=== PATIENT | female | born 1970 | race Caucasian/White ===

== ENCOUNTER 2017-12-09 07:30 | Inpatient (IN) | payer OTHER ==
--- NOTE | 2017-12-08 17:45 | Pre-op HX & Phy Repo 2 SIG ---
DATE OF ADMISSION: 12/09/2017 HISTORY OF PRESENT ILLNESS: The patient is a 47-year-old female in overall good health with a history of colonic inertia, rectal outlet obstruction with a malfunctioning ileorectostomy scheduled to be admitted to undergo surgery to take down her ileorectostomy and create a Sheppard continent intestinal reservoir continent ileostomy. The patient has a past history of colonic inertia, rectal prolapse and pelvic floor dysfunction and in 2013 underwent subtotal colectomy with ileosigmoidostomy. She had some continuing difficulties and then in October 2015 developed a volvulus at the anastomosis with a leak. The patient underwent operation with resection with conversion to an ileorectostomy and a temporary loop ileostomy. During the time that she had the loop ileostomy she had no gastrointestinal symptoms at all. In January 2016 the loop ileostomy was closed. She developed a right lower quadrant abscess drained by CT scan-guided drainage placement in February 2016 and she underwent surgery June 2016 to excise a right lower quadrant abscess tract of the abdominal wall. The patient currently has daily severe abdominal pain and nausea, bloating with every meal, she has some rectal incontinence. She evacuates only with the help of her medications, Linzess which was started after January 2016. The patient developed small bowel obstruction in March of this year which resolved with NG suction. OPERATIONS:In addition to the above, the patient underwent total abdominal hysterectomy with bilateral salpingo-oophorectomy in 1997. MEDICATIONS: Xanax 5 mg every night as needed for restless leg syndrome, estradiol 1 mg daily, Linzess 290 mcg orally daily. ALLERGIES TO MEDICATIONS: Demerol causes hives and Dilaudid causes shortness of breath. PHYSICAL EXAMINATION: VITAL SIGNS: The patient is 5 foot 1 inch, 120 pounds. [place] and will be examined upon arrival and dictated separately. IMPRESSION: 1. History of colonic inertia and rectal outlet/pelvic floor dysfunction with malfunctioning ileorectostomy. 2. History of recurrent small bowel obstruction. 3. History of lupus. 4. History of fibromyalgia. 5. History of shoulder surgery. 6. Status post multiple abdominal operations. 6.1. Total abdominal hysterectomy and bilateral salpingo-oophorectomy 1997 6.2. Subtotal colectomy with ileosigmoidostomy 2013. 6.3. Resection of ileosigmoidostomy due to volvulus and anastomosis leak, with conversion to ileorectostomy and loop ileostomy October 2015. 6.4. Closure of loop ileostomy January 2016. 6.5. Excision of right lower quadrant abscess tract of abdominal wall June 2016 DISCUSSION AND PLAN: The patient will be admitted and undergo preparation for surgery to take down her malfunctioning ileorectal anastomosis and instead of a conventional ileostomy to create a Sheppard Continent Intestinal [place]. She will undergo insertion of a dual lumen PICC line and receive intravenous hydration at the same time as her bowel prep. She will be on a clear liquid diet. She will receive preoperative intravenous antibiotics started the night before surgery and will receive preoperative subcutaneous heparin. I have had a detailed discussion with the patient regarding the nature of the Sheppard Pouch procedure including temporary catheter gastrostomy, indications, alternatives, options, and risks including bleeding, infection, injury to adjacent structures or organs, need for subsequent surgery to revise potential problems with the Sheppard pouch including slipped valve or fistula of pouch or valve or other issues that can occur with the functioning of the pouch or the stoma, etc. I have also discussed the risks of deep vein thrombosis and preventive measures taken, potential need for TPN, etc, and will answer all questions and have a detailed discussion again in person when the patient arrives from out of state. Tyrone Conte M.D. DR: Mitali JOB#: [id number] CC: LAM
[~2017-12-09] VITALS: Ht 157.5 cm; Wt 61.2 kg
[2017-12-09 08:50] VITALS: BP 124/80
[2017-12-09] MEDS ORDERED: ESTRACE1 MG ORAL (09:12)
[2017-12-09] MEDS ORDERED: DIAZEPAM5 MG ORAL (09:13)
[2017-12-09] MEDS ORDERED: Lidocaine 1% Plain 30 ml INJ PRN (09:30)
[2017-12-09] MEDS ORDERED: Heparin 2000 units/Ns 1000ml INJ PRN (09:30)
[2017-12-09] MEDS ORDERED: Zolpidem 5mg tab ORAL PRN (09:45)
[2017-12-09 10:52] LABS: EOSINOPHILS % (AUTO) 1.2 % (0.0-3.0); HEMATOCRIT 37.5 % (37.0-47.0); HEMOGLOBIN 12.3 G/DL (12.0-16.0); LYMPHOCYTES % (AUTO) 28.9 % (20.0-45.0); MEAN CORPUSCULAR VOLUME 85 FL (80-99); MONOCYTES % (AUTO) 7.1 % (1.0-10.0); NEUTROPHILS % (AUTO) 61.8 % (45.0-75.0); PLATELET COUNT 236 K/UL (150-450); RED BLOOD COUNT 4.43 M/UL (4.20-5.40); RED CELL DISTRIBUTION WIDTH 12.6 % (11.6-14.8); WHITE BLOOD COUNT 7.5 K/UL (4.8-10.8)
[2017-12-09 11:15] VITALS: BP 104/70
[2017-12-09 11:20] LABS: ANION GAP 6 mmol/L (5-15); BLOOD UREA NITROGEN 15 mg/dL (7-18); CALCIUM 8.9 MG/DL (8.5-10.1); CARBON DIOXIDE 29 MMOL/L (21-32); CHLORIDE 108 MMOL/L (98-107); CREATININE 0.7 MG/DL (0.55-1.30); POTASSIUM 3.8 MMOL/L (3.5-5.1); SODIUM 143 MMOL/L (136-145)
[2017-12-09 11:25] LABS: ALANINE AMINOTRANSFERASE 18 U/L (12-78); ALBUMIN 3.2 G/DL (3.4-5.0); ALBUMIN/GLOBULIN RATIO 0.8 (1.0-2.7); ALKALINE PHOSPHATASE 87 U/L (46-116); ASPARTATE AMINO TRANSFERASE 15 U/L (15-37); BILIRUBIN,TOTAL 0.1 MG/DL (0.2-1.0)
--- NOTE | 2017-12-09 12:33 | Diagnostic Imaging Report ---
Indication: superintendent container terminal venous access Findings: After the indications, procedure, risks, complications, and alternatives of the procedure were explained, written informed consent was obtained. The left upper extremity was prepped with alcohol. All elements of maximal sterile barrier technique were followed including usage of a cap, mask, sterile gown, sterile gloves, hand hygiene and a large sterile sheet. Sonographic evaluation of the upper extremity was performed demonstrating a patent and compressible brachial vein. Access was obtained under real-time ultrasound guidance (with utilization of sterile gel and sterile probe cover) and digital image was saved and archived. An .018 wire was introduced. Needle exchanged for a 5 Canadian peel-away sheath. Measurements were obtained. A 5 Canadian dual-lumen Power PICC line catheter was cut to 46 cm and introduced over the wire. Peel-away sheath and wire were removed.Catheter was secured to the skin using 2-0 Prolene suture. Both ports aspirate and flush easily. Fluoroscopic images show distal tip in the superior vena cava. Total fluoroscopic time 0.2 minutes. Impression: Successful placement of an upper extremity PICC line catheter
--- NOTE | 2017-12-09 12:33 | Diagnostic Imaging Report ---
Indication: Cough. Status post PICC line Comparison: None A single view chest radiograph was obtained. Findings: Left upper extremity PICC line was placed. The tip projects over the SVC/right atrial junction in good position. Cardiomediastinal appearance is within normal limits for age. The lungs are clear. Pulmonary vascularity is appropriate. The diaphragmatic contour is smooth and costophrenic angles are sharp. No pleural effusions are identified. The bones are unremarkable. Impression: No acute findings. PICC line cleared for use.
[2017-12-09] MEDS: Neomycin Sulfate 500mg Tab ORAL SCH ×3 (12:47→20:10)
[2017-12-09 12:58] LABS: APPEARANCE,URINE CLEAR; BILIRUBIN, URINE NEGATIVE (NEGATIVE); COLOR,URINE PALE YELLOW; GLUCOSE, URINE (UA) NEGATIVE (NEGATIVE); KETONES,URINE NEGATIVE (NEGATIVE); LEUKOCYTE ESTERASE ,URINE NEGATIVE (NEGATIVE); NITRITE,URINE NEGATIVE (NEGATIVE); PH,URINE 5 (4.5-8.0); PROTEIN,URINE NEGATIVE (NEGATIVE); UROBILINOGEN,URINE NORMAL MG/DL (0.0-1.0)
[2017-12-09] MEDS: D5 1/2NS w/KCl 20mEq 1,000 ML IV SCH ×3 (14:31→22:00)
[2017-12-09] MEDS ORDERED: D5 1/2NS w/KCl 20mEq 1,000 ML IV SCH ×2 (14:37→18:00)
--- NOTE | 2017-12-09 15:27 | General Progress Note ---
Progress Note Progress Note H&P dictated - patient states no surgery was performed for SBO in March of this year - resolved with NG suction. Hgb 12.3 Albumin low 3.2 Imp. Colonic inertia and pelvic floor dysfunction with failed ileorectostomy Malnutrition Plan: bowel prep, IV hydration, IV antibiotics pre-op tonight and SQ heparin in AM pre-op f/u labs in AM pre-op Full discussion with patient and family. Tyrone Conte MD Dec 09, 2017 15:27
[2017-12-09 16:00] VITALS: BP 118/68
[2017-12-09 19:59] VITALS: BP 114/74
[2017-12-09] MEDS: Dyna-Hex 2% Top Sol 2oz TOPIC SCH (20:10)
[2017-12-09] MEDS: ESTRADIOL 2 MG ORAL SCH (20:10)
[2017-12-09] MEDS ORDERED: ALPRAZolam 0.5mg tab ORAL PRN (21:00)
--- NOTE | 2017-12-09 22:00 | Pre-op HX & Phy Repo 2 SIG ---
DATE OF ADMISSION: 12/09/2017 PREOPERATIVE ADMISSION HISTORY AND PHYSICAL The patient has now [place]. Please see previously dictated history. PHYSICAL EXAMINATION: GENERAL: The patient is well developed and well nourished. VITAL SIGNS: Stable vital signs, 5 feet 1 inch, approximately 120 pounds. HEENT: Within normal limits. LUNGS: Clear. HEART: Regular rhythm. BREASTS: Without masses. ABDOMEN: Soft with a midline indented scar from umbilicus to pubis and a Pfannenstiel scar also somewhat indented. There is a transverse right lower quadrant scar high in the right lower quadrant from prior loop ileostomy. There was no evidence of abdominal wall hernia. PELVIC: Status post MESHA and BSO. RECTAL: No perianal inflammation. EXTREMITIES: Without edema. Pulses 3+ femoral to pedal bilaterally. NEUROLOGIC: Physiologic. IMPRESSION: 1. History of colonic inertia and pelvic floor dysfunction with malfunctioning failed ileorectostomy. 2. History of lupus. 3. History of fibromyalgia. 4. History of shoulder surgery. 5. STATUS POST MULTIPLE ABDOMINAL OPERATIONS: 1. Total abdominal hysterectomy and bilateral salpingo-oophorectomy 1997 2. Subtotal colectomy with ileosigmoidostomy 2013. 3. Resection of ileosigmoidostomy due to volvulus and anastomosis leak with conversion to ileorectostomy with temporary loop ileostomy in October 2015 4. Closure of loop ileostomy in January 2016. 5. Excision of right lower quadrant abscess tract of the abdominal wall June 2016 6. Recurrent small bowel obstruction DISCUSSION: I had a full discussion with the patient and her family regarding the nature of her condition, the nature of the Sheppard continent ileostomy compared to conventional ileostomy, indications, alternatives, options and all of the risks. All questions have been answered. The patient understands and agrees to proceed. Tyrone Conte M.D. DR: SHUN/WU JOB#: [id number] CC: LAM
[2017-12-09] MEDS: Ampicillin/Sulbactam Sod 3 GM in NS 110 ML IV SCH (23:18)
[2017-12-10] VITALS (17 sets, daily range): BP systolic 103–118; BP diastolic 55–77
[2017-12-10] MEDS ORDERED: Heparin 5000 units/ml inj SUBQ SCH (05:30)
[2017-12-10] MEDS: Ampicillin/Sulbactam Sod 3 GM in NS 110 ML IV SCH ×4 (05:32→23:16)
[2017-12-10] MEDS: D5 1/2NS w/KCl 20mEq 1,000 ML IV SCH ×2 (05:33→22:32)
[2017-12-10 05:55] LABS: BASOPHILS % (AUTO) 0.9 % (0.0-2.0); EOSINOPHILS % (AUTO) 1.2 % (0.0-3.0); HEMOGLOBIN 10.3 G/DL (12.0-16.0); LYMPHOCYTES % (AUTO) 16.4 % (20.0-45.0); MEAN CORPUSCULAR VOLUME 86 FL (80-99); MONOCYTES % (AUTO) 5.8 % (1.0-10.0); NEUTROPHILS % (AUTO) 75.7 % (45.0-75.0); PLATELET COUNT 177 K/UL (150-450); RED BLOOD COUNT 3.84 M/UL (4.20-5.40); RED CELL DISTRIBUTION WIDTH 12.7 % (11.6-14.8); WHITE BLOOD COUNT 6.3 K/UL (4.8-10.8)
[2017-12-10 06:33] LABS: ALBUMIN 2.6 G/DL (3.4-5.0); FERRITIN 10 NG/ML (8-388)
[2017-12-10 06:50] LABS: % IRON SATURATION 41 % (15-50); IRON 125 ug/dL (50-175); TOTAL IRON BINDING CAPACITY 305 ug/dL (250-450)
[2017-12-10] MEDS ORDERED: Sterile Water Irrig 1000ml IRRIG ONE (07:00)
[2017-12-10] MEDS ORDERED: Neostigmine 1mg/ml 10ml Inj ONE (07:00)
[2017-12-10] MEDS ORDERED: Ketorolac 30mg Inj ONE (07:00)
[2017-12-10] MEDS ORDERED: LR 1000ml ONE (07:00)
[2017-12-10] MEDS ORDERED: Propofol 1,000mg/ 100ml btl IV ONE (07:00)
[2017-12-10] MEDS ORDERED: NS Irrig 1000ml ONE (07:00)
[2017-12-10] MEDS ORDERED: Succinylcholine 20mg/ml 10ml vial ONE (07:01)
[2017-12-10] MEDS ORDERED: Zemuron 50mg/5ml Inj IV ONE (07:01)
[2017-12-10] MEDS ORDERED: fentaNYL 100 mcg/2 mL IV ONE (07:08)
[2017-12-10] MEDS ORDERED: Midazolam 2mg/2ml Inj ONE (07:08)
[2017-12-10] MEDS ORDERED: Bacitracin 50000 Units Vial ONE (07:15)
[2017-12-10] MEDS ORDERED: NeoSporin Gu Irrig 1ml Amp IRRIG ONE (07:15)
--- NOTE | 2017-12-10 07:15 | Pre-Procedure Note/Attestation ---
Pre-Procedure Note/Attestation Complete Prior to Procedure Planned Procedure: not applicable Procedure Narrative: Sheppard Continent Intestinal [place]; gastrostomy Indications for Procedure Pre-Operative Diagnosis: colonic inertia, failed ileorectostomy Attestation I attest that I discussed the nature of the procedure; its benefits; risks and complications; and alternatives (and the risks and benefits of such alternatives ), prior to the procedure, with the patient (or the patient's legal retail field representative). I attest that, if there was a reasonable possibility of needing a blood transfusion, the patient (or the patient's legal retail field representative) was given the [facility] standardized written summary, pursuant to the [place] Blood Safety Act ([place] Health and Safety Code # 1645, as amended). I attest that I re-evaluated the patient just prior to the surgery and that there has been no change in the patient's H&P, except as documented below:none Tyrone Conte MD Dec 10, 2017 07:15
[2017-12-10] MEDS ORDERED: Morphine Sulfate 10mg/ml Inj ONE (08:20)
[2017-12-10] MEDS ORDERED: Sodium Chloride 10ml vial INJ ONE (08:20)
--- NOTE | 2017-12-10 08:36 | Anethesia Preoperative Eval ---
Anesthesia Pre-op PMH/ROS General Date of Evaluation: Dec 10, 2017 Time of Evaluation: 07:10 Anesthesiologist: Francesco ASA Score: ASA 3 Mallampati Score Class I : Soft palate, uvula, fauces, pillars visible Class II: Soft palate, uvula, fauces visible Class III: Soft palate, base of uvula visible Class IV: Only hard plate visible Mallampati Classification: Class II Surgeon: Dg Diagnosis: Malfunctioing ileostomy Surgical Procedure: Ex laparotomy creation of continent pouch Anesthesia History: PONV Family History: no anesthesia problems Allergies: Coded Allergies: HYDROMORPHONE (Verified Allergy, Severe, Shortness of Breath, 12/09/17) MEPERIDINE (Verified Allergy, Severe, Hives, 12/09/17) Medications: see eMAR Patient NPO?: Yes NPO Date: Dec 10, 2017 NPO Time: 0000 Past Medical History Cardiovascular: Denies: HTN, CAD, VT, valve dz, arrhythmia, other Pulmonary: Denies: asthma, COPD, KENDRA, other Gastrointestinal/Genitourinary: Reports: GERD - mild, other - Colon mobility disorder; Denies: CRI, ESRD Neurologic/Psychiatric: Reports: depression/anxiety; Denies: dementia, CVA, TIA, other HEENT: Denies: cataract (L), cataract (R), glaucoma, OMAHA (L), OMAHA (R), other Hematology/Immune: Reports: anemia - mild; Denies: DVT, bleeding disorder, other Musculoskeletal/Integumentary: Denies: OA, RA, DJD, DDD, edema, other PMH Narrative: as above PSxH Narrative: multiple abdominal Sx including hysterectomy, see H&P for details Anesthesia Pre-op Phys. Exam Physician Exam Last Vital Signs Date Time Temp Pulse Resp B/P (MAP) Pulse Ox O2 Delivery O2 Flow Rate FiO2 12/10/17 05:30 97.7 87 18 112/70 (84) 100 97.7 12/09/17 21:00 Room Air Constitutional: NAD Neurologic: CN 2-12 intact Cardiovascular: RRR, no M/R/G Respiratory: CTA Gastrointestinal: S/NT/ND Airway Exam Mallampati Score: Class II MO: full Neck: flexible ROM: full Teeth: intact Dentures: no upper, no lower Anesthesia Pre-op A/P Labs Hematology Test 10/15/18 10:25 12/10/17 05:30 White Blood Count 7.5 K/UL (4.8-10.8) 6.3 K/UL (4.8-10.8) Red Blood Count 4.43 M/UL (4.20-5.40) 3.84 M/UL (4.20-5.40) L Hemoglobin 12.3 G/DL (12.0-16.0) 10.3 G/DL (12.0-16.0) L Hematocrit 37.5 % (37.0-47.0) 33.0 % (37.0-47.0) L Mean Corpuscular Volume 85 FL (80-99) 86 FL (80-99) Mean Corpuscular Hemoglobin 27.9 PG (27.0-31.0) 26.9 PG (27.0-31.0) L Mean Corpuscular Hemoglobin Concent 32.9 G/DL (32.0-36.0) 31.3 G/DL (32.0-36.0) L Red Cell Distribution Width 12.6 % (11.6-14.8) 12.7 % (11.6-14.8) Platelet Count 236 K/UL (150-450) 177 K/UL (150-450) Mean Platelet Volume 7.7 FL (6.5-10.1) 8.2 FL (6.5-10.1) Neutrophils (%) (Auto) 61.8 % (45.0-75.0) 75.7 % (45.0-75.0) H Lymphocytes (%) (Auto) 28.9 % (20.0-45.0) 16.4 % (20.0-45.0) L Monocytes (%) (Auto) 7.1 % (1.0-10.0) 5.8 % (1.0-10.0) Eosinophils (%) (Auto) 1.2 % (0.0-3.0) 1.2 % (0.0-3.0) Basophils (%) (Auto) 1.0 % (0.0-2.0) 0.9 % (0.0-2.0) Coagulation Test 12/09/17 10:25 Prothrombin Time 10.1 SEC (9.30-11.50) Prothromb Time International Ratio 1.0 (0.9-1.1) Activated Partial Thromboplast Time 25 SEC (23-33) Chemistry Test 12/09/17 10:25 12/10/17 05:30 Sodium Level 143 MMOL/L (136-145) Potassium Level 3.8 MMOL/L (3.5-5.1) Chloride Level 108 MMOL/L (98-107) H Carbon Dioxide Level 29 MMOL/L (21-32) Anion Gap 6 mmol/L (5-15) Blood Urea Nitrogen 15 mg/dL (7-18) Creatinine 0.7 MG/DL (0.55-1.30) Estimat Glomerular Filtration Rate > 60 mL/min (>60) Glucose Level 93 MG/DL (74-106) Calcium Level 8.9 MG/DL (8.5-10.1) Total Bilirubin 0.1 MG/DL (0.2-1.0) L Aspartate Amino Transf (AST/SGOT) 15 U/L (15-37) Alanine Aminotransferase (ALT/SGPT) 18 U/L (12-78) Alkaline Phosphatase 87 U/L (46-116) Total Protein 7.1 G/DL (6.4-8.2) Albumin 3.2 G/DL (3.4-5.0) L 2.6 G/DL (3.4-5.0) L Globulin 3.9 g/dL Albumin/Globulin Ratio 0.8 (1.0-2.7) L Iron Level 125 ug/dL (50-175) Total Iron Binding Capacity 305 ug/dL (250-450) Percent Iron Saturation 41 % (15-50) Unsaturated Iron Binding 180 ug/dL (112-346) Ferritin 10 NG/ML (8-388) Vitamin B12 Level 374 PG/ML (193-986) Folate 11.4 NG/ML (8.6-58.9) Risk Assessment & Plan Assessment: ASA 3 Plan: GA with ETT PONV prevention Status Change Before Surgery: No Pre-Antibiotics Drug: as scheduled Reggie Maya MD Dec 10, 2017 08:36
[2017-12-10] MEDS ORDERED: Glycopyrrolate 0.2mg/ml 1ml Vial ONE (09:45)
[2017-12-10] MEDS ORDERED: LR 1000ml 1,000 ML IVLG SCH (10:23)
[2017-12-10] MEDS ORDERED: Midazolam 2mg/2ml Inj IVP PRN (10:30)
[2017-12-10] MEDS ORDERED: Morphine Sulfate 2mg/ml Inj IVP PRN (10:30)
[2017-12-10] MEDS ORDERED: Ketorolac 30mg Inj IV PRN (10:30)
[2017-12-10] MEDS ORDERED: DiphenhydrAMINE 50mg/ml Inj IVP PRN ×2 (10:30→12:23)
[2017-12-10] MEDS ORDERED: Metoclopramide 10mg/2ml Inj IVP PRN ×2 (10:30→22:30)
[2017-12-10] MEDS ORDERED: fentaNYL 100 mcg/2 mL IV PRN (10:30)
[2017-12-10] MEDS ORDERED: Ampicillin/Sulbactam Sod 3 GM in NS 110 ML IV SCH (12:00)
--- NOTE | 2017-12-10 12:09 | Immediate Post-Op Evaluation ---
Immediate Post-Op Evalulation Immediate Post-Op Evalulation Procedure: Ex laparotomy creation of continent pouch Date of Evaluation: Dec 10, 2017 Time of Evaluation: 12:07 IV Fluids: 1500 Blood Products: Albumin 250 Estimated Blood Loss: 50 Urinary Output: 150 Blood Pressure Systolic: 105 Blood Pressure Diastolic: 56 Pulse Rate: 84 Respiratory Rate: 20 O2 Sat by Pulse Oximetry: 99 Temperature (Fahrenheit): 98.6 Pain Score (1-10): 1 Nausea: No Vomiting: No Complications none Patient Status: reacts, patent, extubated, none Hydration Status: adequate Reggie Maya MD Dec 10, 2017 12:09
[2017-12-10] MEDS ORDERED: Rate Change PCA 1 Each MISC PRN (12:15)
[2017-12-10] MEDS ORDERED: Morphine Sulfate 4mg/ml Inj (IV/IM USE ONLY) IV PRN (12:15)
[2017-12-10] MEDS ORDERED: Naloxone 0.4mg/ml Inj IVP PRN (12:15)
[2017-12-10] MEDS ORDERED: PCA Education Pamphlet MISC ONE (12:15)
--- NOTE | 2017-12-10 12:18 | Brief Operative Note ---
Immediate Post Operative Note Operative Note Pre-op Diagnosis: colonic inertia, failed ileorectostomy Procedure: Takedown and resection of ileorectostomy; Sheppard Continent Intestinal [place] ; gastrostomy Post-op Diagnosis: same Post-op Diagnosis: same as pre-op Findings: consistent w/pre-op dx studies Surgeon: ciro Medical Record Coder: claudia Anesthesiologist: kenton Anesthesia: general Specimen: yes - ileorectostomy and small bowel segment Complications: none Condition: stable Fluids: see anesthesia record Estimated Blood Loss: volume - 50cc Drains: other - 28 Block to Sheppard Pouch; 18Fr gastrostomy; 0.25" peggy Implant(s) used?: No Tyrone Conte MD Dec 10, 2017 12:18
[2017-12-10] MEDS: PCA Morphine 1mg/ml 30 ML IV PRN (12:31)
[2017-12-10] MEDS ORDERED: LORazepam 1mg tab SL PRN (12:56)
[2017-12-10] MEDS: D5 1/4NS w/KCl 20mEq 1,000 ML IV SCH ×2 (14:16→23:16)
[2017-12-10] MEDS ORDERED: Metoclopramide 10mg/2ml Inj IVP SCH (16:32)
--- NOTE | 2017-12-10 16:45 | Operative Note - Dictated ---
DATE OF OPERATION: 12/10/2017 SURGEON: Tyrone Conte M.D. SUPERVISOR OF COMMUNICATIONS SURGEON: Balwinder Patrick M.D. ANESTHESIOLOGIST: Reggie Maya M.D. TYPE OF ANESTHESIA: General endotracheal. PREOPERATIVE DIAGNOSES: 1. Colonic inertia and pelvic floor dysfunction with failed ileorectostomy 2. Recurrent small-bowel obstruction. 3. STATUS POST MULTIPLE ABDOMINAL OPERATIONS: 1. Total abdominal hysterectomy and bilateral salpingo-oophorectomy 1997 2. Subtotal colectomy with ileosigmoidostomy in 2013. 3. Resection of ileosigmoidostomy due to volvulus with anastomosis leak with conversion to ileorectostomy and temporary loop ileostomy October 2015 4. Closure of loop ileostomy in January 2016. 5. Excision of right lower quadrant abscess tract of abdominal wall June 2016 POSTOPERATIVE DIAGNOSES: 1. Colonic inertia and pelvic floor dysfunction with failed ileorectostomy 2. Recurrent small-bowel obstruction. 3. STATUS POST MULTIPLE ABDOMINAL OPERATIONS: 1. Total abdominal hysterectomy and bilateral salpingo-oophorectomy 1997 2. Subtotal colectomy with ileosigmoidostomy in 2013. 3. Resection of ileosigmoidostomy due to volvulus with anastomosis leak with conversion to ileorectostomy and temporary loop ileostomy October 2015 4. Closure of loop ileostomy in January 2016. 5. Excision of right lower quadrant abscess tract of abdominal wall June 2016 OPERATION PERFORMED: Takedown and resection of failed ileorectostomy with creation of a Sheppard Continent Intestinal [place] and temporary catheter gastrostomy. DESCRIPTION OF PROCEDURE: The patient was taken to the operating room and under general endotracheal anesthesia with sequential compression device stockings and Block catheter in place and having received intravenous antibiotics and preoperative subcutaneous heparin, the patient was prepped and draped in the usual fashion. The patient had both a Pfannenstiel incision and a lower midline and multiple trocar scars. The previous lower midline incision was reopened ultimately extending into the midepigastrium because of severe diffuse adhesions. Adhesions were noted throughout the abdomen. A loop of small bowel was densely adherent to the undersurface of the left lobe of the liver. The liver and gallbladder itself were normal to inspection and palpation. There was an ample amount of small intestine, all of which was normal. The small intestine was traced from ligament of Treitz to the ileorectostomy taking down all the adhesions. The ileorectostomy was stapled across at the anastomosis and another application further down on the rectum, giving the specimen to pathology. Now the dilated ileum distal of several inches was excised with another application of a DAVIS-75 stapling device and this staple line proximally was imbricated with 3-0 silk and 12 cm proximal marked for the collar segment. Another marker was placed 15 cm proximal and two 15-cm loops placed side by side including the prior enteroenterostomy from closure of loop ileostomy. An appropriately situated enterostomy was created and using the DAVIS-75 stapling device with multiple applications, an ileal reservoir was created. A 3-0 silk was placed at the apex. The staple line was everted and the serosal posterior aspect was inspected and there were no defects. The mucosal aspect was inspected and hemostasis was secure. The junction of the afferent bowel and the pouch was marked with 2-0 chromic and 12 cm proximal marked for the nipple valve segment. Another marker was placed and a 2-fingerbreadth mesenteric hiatus created ligating vessels with 3-0 silk. The abdominal wall measured at 3 cm thickness and the appropriate-length access segment was measured and marked and then the mesentery divided preserving two good vessels to the access segment and the bowel divided proximally with the linear stapler 30, imbricated with 3-0 silk and distally left open to become the new stoma. The peritoneum on each side of the valve segment mesentery was stripped and the serosa scarified with cautery. With gradual intussusception a 5.0-cm long nipple valve was created. Two rows of lauren using the PI-55 stapling device with 4.8 mm lauren were placed 90 degrees away from the mesentery on each side. 3-0 silk sutures were taken between the access segment and the pouch on each side of its mesentery and then another application of the PI-55 stapling device was utilized to staple the valve to the anterior pouch wall. Using a Cooper suction cannula, orientation was maintained and patency confirmed. Additional sutures of 3-0 silk were taken between the access segment and the pouch. Now intestinal continuity was restored taking the proximal bowel, placing it side by side to the pouch enterotomy with a very short blind end and an outer layer of 3-0 silk placed. Then the proximal bowel was opened and anastomosis created with full-thickness locking continuous 2-0 chromic starting posteriorly, continued anteriorly with an outer anterior layer of 3-0 silk. Now the collar was brought through the mesenteric hiatus and sutured to the pouch, to the afferent bowel, and to itself with multiple 3-0 silk sutures. The afferent bowel was now manually occluded and a 28-Ind[place] Block catheter placed through the stoma into the pouch. The pouch was distended with 120 mL of saline and there was no evidence of extravasation. The catheter was removed and there was no incontinence. The catheter was reintroduced and the pouch decompressed. The abdomen and pelvis were carefully inspected and hemostasis was satisfactory. The bladder and ureters had been avoided and protected during the procedure. At a previously located site low in the right lower quadrant, a 2.5-cm narrow ellipse of skin was excised in transverse orientation and with a cruciate incision in the fascia, a 2-fingerbreadth abdominal wall hiatus was created. Bleeding from the epigastric vessel was controlled with [id number] 2-0 chromic. The posterior pouch was sutured to the peritoneum at the stoma site with 3-0 Vicryl and then the stoma and the access segment with its mesentery brought through the abdominal wall. With a 28-Ind[place] Block catheter positioned in the pouch, the stoma was primarily matured with continuous 2-0 chromic locking suture starting at the 3 and 9 o'clock positions. The pouch lay nicely in the pelvis and the bowel loops were replaced anatomically. The catheter was appropriately positioned at the apex of the pouch, marked at the level of the stoma with 3-0 silk and then sutured to the skin with two sutures of 2-0 silk. The catheter was flushed and connected to a gravity drainage bag. Through a separate stab incision inferior to the stoma, a quarter-inch [place] drain was placed into the pelvis and sutured to the skin with 3-0 silk suture. Throughout the procedure, the abdominal wall was protected with antibiotic-soaked laps and there were frequent glove changes. A [place] retractor was utilized. Now to provide decompression, a catheter gastrostomy was created by passing an 18-[place] Block catheter through a stab incision in the left upper quadrant and placed into the stomach greater curve anterior wall body between two concentric 2-0 chromic pursestring sutures with the balloon inflated and the stomach sutured to the anterior abdominal wall with multiple 3-0 silk sutures. The catheter was flushed and connected to a gravity drainage bag and was sutured to the skin with 2-0 silk suture with the balloon inflated and brought up against the abdominal wall. Now the midline incision was closed in one layer with continuous 0-looped PDS. Additional antibiotic irrigation was used and the skin closed with lauren and 2-0 nylon interrupted vertical mattress sutures around the umbilicus. Final sponge and needle counts were correct. Dry sterile dressings were applied. The patient tolerated the procedure well and left the operating room in good condition. Tyrone Conte M.D. DR: Adriana JOB#: [id number] CC: LAM
[2017-12-10] MEDS: PCA shift volume MISC SCH (19:02)
[2017-12-10] MEDS: Dyna-Hex 2% Top Sol 2oz TOPIC SCH (20:09)
[2017-12-10] MEDS: Metoclopramide 10mg/2ml Inj IVP SCH (20:09)
[2017-12-10] MEDS: ESTRADIOL 2 MG ORAL SCH (20:11)
[2017-12-11] VITALS (7 sets, daily range): BP systolic 92–106; BP diastolic 57–63
[2017-12-11] MEDS: PCA Morphine 1mg/ml 30 ML IV PRN ×2 (00:51→08:58)
[2017-12-11] MEDS: Metoclopramide 10mg/2ml Inj IVP SCH ×4 (02:50→20:25)
[2017-12-11] MEDS: Morphine Sulfate 2mg/ml Inj IVP PRN ×2 (04:28→06:34)
[2017-12-11] MEDS: Ampicillin/Sulbactam Sod 3 GM in NS 110 ML IV SCH ×4 (05:43→23:46)
[2017-12-11 06:35] LABS: BASOPHILS % (AUTO) 0.4 % (0.0-2.0); EOSINOPHILS % (AUTO) 1.3 % (0.0-3.0); HEMATOCRIT 29.2 % (37.0-47.0); HEMOGLOBIN 9.4 G/DL (12.0-16.0); LYMPHOCYTES % (AUTO) 13.9 % (20.0-45.0); MEAN CORPUSCULAR VOLUME 85 FL (80-99); MONOCYTES % (AUTO) 7.3 % (1.0-10.0); NEUTROPHILS % (AUTO) 77.1 % (45.0-75.0); PLATELET COUNT 160 K/UL (150-450); RED BLOOD COUNT 3.42 M/UL (4.20-5.40); RED CELL DISTRIBUTION WIDTH 12.3 % (11.6-14.8); WHITE BLOOD COUNT 8.9 K/UL (4.8-10.8)
[2017-12-11 07:09] LABS: ANION GAP 1 mmol/L (5-15); BLOOD UREA NITROGEN 3 mg/dL (7-18); CALCIUM 6.1 MG/DL (8.5-10.1); CARBON DIOXIDE 27 MMOL/L (21-32); CHLORIDE 102 MMOL/L (98-107); CREATININE 0.7 MG/DL (0.55-1.30); POTASSIUM 5.3 MMOL/L (3.5-5.1); SODIUM 130 MMOL/L (136-145)
[2017-12-11] MEDS: PCA shift volume MISC SCH ×2 (07:31→19:29)
[2017-12-11 08:28] LABS: CHLORIDE 107 MMOL/L (98-107); POTASSIUM 3.3 MMOL/L (3.5-5.1)
[2017-12-11] MEDS ORDERED: Naloxone 0.4mg/ml Inj IVP PRN (08:34)
[2017-12-11] MEDS ORDERED: DiphenhydrAMINE 50mg/ml Inj IVP PRN (08:36)
[2017-12-11] MEDS ORDERED: Morphine Sulfate 2mg/ml Inj IVP PRN (08:36)
[2017-12-11] MEDS ORDERED: Rate Change PCA 1 Each MISC PRN (08:45)
[2017-12-11 08:49] LABS: ANION GAP 6 mmol/L (5-15); BLOOD UREA NITROGEN 3 mg/dL (7-18); CALCIUM 6.6 MG/DL (8.5-10.1); CARBON DIOXIDE 28 MMOL/L (21-32); CREATININE 0.7 MG/DL (0.55-1.30); SODIUM 141 MMOL/L (136-145)
[2017-12-11] MEDS ORDERED: Vitamin B12 1000mcg/ml Inj IM SCH (09:00)
--- NOTE | 2017-12-11 09:02 | General Progress Note ---
Progress Note Progress Note T100 P 103 Comfortable with MS [employer]CHNICAL BU[employer]ER. Chest clear with decreased expansion Cor - reg rhythm Abdomen distended, soft, incision clean, stoma pink. Winsome moderate serosang 12 hours overnight: urine 1400 Gastrostomy 20 BCIR ileo 70 serosang WBC 8900 Hgb 9.4 BMP-pending Pre-op: Fe 125 Ferritin 10 (8-388) B12 374 Folate 11.4 (8.6-58.9) Albumin 2.6 Hgb 10.3 Imp. Ileus Atelectasis Malnutrition with pre-op allbumin 2.6 anemia with pre-op Hgb 10.3 Very low B12 and Folic acid levels - will replace Plan; NPO TPN continue Block - pelvic dissection mobilize f/u labs including repeat iron panel Tyrone Conte MD Dec 11, 2017 09:02
[2017-12-11] MEDS ORDERED: Morphine Sulfate 4mg/ml Inj (IV/IM USE ONLY) IV PRN (09:15)
--- NOTE | 2017-12-11 09:26 | 48 Hour Post Anesthesia Eval ---
Post Anesthesia Evaluation Procedure: Ex laparotomy creation of continent pouch Date of Evaluation: Dec 11, 2017 Time of Evaluation: 09:25 Nausea: No Vomiting: No Ilia Vela MD Dec 11, 2017 09:26
[2017-12-11] MEDS ORDERED: D5 1/2NS w/KCl 40meq 1000ml 1,000 ML IV SCH (10:00)
[2017-12-11] MEDS ORDERED: NS Irrig 1000ml ONE (11:34)
[2017-12-11] MEDS: Acetaminophen 650mg/20.3ml GT PRN (17:14)
[2017-12-11] MEDS ORDERED: Dextrose 10% 1,000 ML IV PRN (20:00)
[2017-12-11] MEDS: Dyna-Hex 2% Top Sol 2oz TOPIC SCH (20:25)
[2017-12-11] MEDS: ESTRADIOL 2 MG ORAL SCH (20:25)
[2017-12-11] MEDS: D5 1/2NS w/KCl 40meq 1000ml 1,000 ML IV SCH (20:25)
[2017-12-11] MEDS: TPN IV SCH (20:41)
[2017-12-11] MEDS: FAT EMULSION 20% IV SCH (20:41)
[2017-12-11] MEDS ORDERED: Fat Emulsion Iv 20% 250 ML IV SCH (21:00)
[2017-12-12] VITALS (7 sets, daily range): BP systolic 92–105; BP diastolic 57–65
[2017-12-12] MEDS: NovoLOG Insulin Flexpen SUBQ SCH ×5 (00:01→23:52)
[2017-12-12] MEDS: Metoclopramide 10mg/2ml Inj IVP SCH ×4 (03:01→20:24)
[2017-12-12] MEDS: PCA Morphine 1mg/ml 30 ML IV PRN (03:02)
[2017-12-12 05:30] LABS: BASOPHILS % (AUTO) 0.3 % (0.0-2.0); EOSINOPHILS % (AUTO) 2.1 % (0.0-3.0); HEMATOCRIT 29.2 % (37.0-47.0); HEMOGLOBIN 9.7 G/DL (12.0-16.0); LYMPHOCYTES % (AUTO) 9.1 % (20.0-45.0); MEAN CORPUSCULAR VOLUME 84 FL (80-99); MONOCYTES % (AUTO) 5.7 % (1.0-10.0); NEUTROPHILS % (AUTO) 82.7 % (45.0-75.0); PLATELET COUNT 156 K/UL (150-450); RED BLOOD COUNT 3.47 M/UL (4.20-5.40); RED CELL DISTRIBUTION WIDTH 12.1 % (11.6-14.8); WHITE BLOOD COUNT 9.8 K/UL (4.8-10.8)
[2017-12-12] MEDS: Ampicillin/Sulbactam Sod 3 GM in NS 110 ML IV SCH ×4 (05:56→23:49)
[2017-12-12 05:57] LABS: ANION GAP 6 mmol/L (5-15); BLOOD UREA NITROGEN 5 mg/dL (7-18); CALCIUM 7.2 MG/DL (8.5-10.1); CARBON DIOXIDE 28 MMOL/L (21-32); CHLORIDE 105 MMOL/L (98-107); CREATININE 0.7 MG/DL (0.55-1.30); POTASSIUM 3.4 MMOL/L (3.5-5.1); SODIUM 139 MMOL/L (136-145)
[2017-12-12 06:01] LABS: IRON 10 ug/dL (50-175)
[2017-12-12] MEDS: PCA shift volume MISC SCH ×2 (07:00→19:47)
[2017-12-12] MEDS ORDERED: PCA Morphine 1mg/ml 30 ML IV PRN (08:36)
[2017-12-12] MEDS ORDERED: Naloxone 0.4mg/ml Inj IVP PRN (08:38)
--- NOTE | 2017-12-12 08:41 | General Progress Note ---
Progress Note Progress Note Tmax 100.7 Intermittent tachycardia and nausea despite Reglan q6h and prn Zofran Fair IS effort - chest clear Abdomen soft, mild distention, incision clean, peggy mod. serosang, stoma pink Rightj proximal forearm aching pain without objective findings - neurologic intact to hand/fingers. Rash nearly resolved Urine 1900 Gastrostomy 150 BCIR ileo 240 serosang WBC 9800 Hgb 9.7 (stable) K 3.4 Fe 10 Imp. Atelectasis Ileus Iron deficiency Plan; continue npo, TPN Venofer d/c basal infusion of CARDIAC TECH - continue demand dosing increase ambulation Tyrone Conte MD Dec 12, 2017 08:41
[2017-12-12] MEDS ORDERED: Rate Change PCA 1 Each MISC PRN (08:45)
[2017-12-12] MEDS: Phytonadione 10 mg/mL 1ml amp SUBQ SCH (08:57)
[2017-12-12] MEDS ORDERED: Morphine Sulfate 2mg/ml Inj IVP PRN (09:00)
[2017-12-12] MEDS ORDERED: DiphenhydrAMINE 50mg/ml Inj IVP PRN (09:00)
[2017-12-12] MEDS ORDERED: Morphine Sulfate 4mg/ml Inj (IV/IM USE ONLY) IV PRN (09:15)
[2017-12-12] MEDS: Iron Sucrose 100 MG in NS 55 ML IV SCH (20:23)
[2017-12-12] MEDS: Dyna-Hex 2% Top Sol 2oz TOPIC SCH (20:23)
[2017-12-12] MEDS: ESTRADIOL 2 MG ORAL SCH (20:24)
[2017-12-12] MEDS: FAT EMULSION 20% IV SCH (20:24)
[2017-12-12] MEDS: D5 1/2NS w/KCl 40meq 1000ml 1,000 ML IV SCH (20:24)
[2017-12-12] MEDS: TPN IV SCH (20:24)
[2017-12-13] VITALS: BP 102/60
[2017-12-13] MEDS: Metoclopramide 10mg/2ml Inj IVP SCH ×4 (02:35→20:06)
[2017-12-13 04:00] VITALS: BP 120/70
[2017-12-13] MEDS: Ampicillin/Sulbactam Sod 3 GM in NS 110 ML IV SCH ×4 (05:03→23:12)
[2017-12-13 05:35] LABS: BASOPHILS % (AUTO) 0.4 % (0.0-2.0); HEMATOCRIT 30.7 % (37.0-47.0); HEMOGLOBIN 10.2 G/DL (12.0-16.0); LYMPHOCYTES % (AUTO) 12.9 % (20.0-45.0); MEAN CORPUSCULAR VOLUME 84 FL (80-99); MONOCYTES % (AUTO) 6.2 % (1.0-10.0); NEUTROPHILS % (AUTO) 76.5 % (45.0-75.0); PLATELET COUNT 156 K/UL (150-450); RED BLOOD COUNT 3.66 M/UL (4.20-5.40); RED CELL DISTRIBUTION WIDTH 12.4 % (11.6-14.8); WHITE BLOOD COUNT 8.6 K/UL (4.8-10.8)
[2017-12-13 05:37] LABS: ALANINE AMINOTRANSFERASE 17 U/L (12-78); ALBUMIN 2.1 G/DL (3.4-5.0); ALBUMIN/GLOBULIN RATIO 0.6 (1.0-2.7); ALKALINE PHOSPHATASE 77 U/L (46-116); ANION GAP 7 mmol/L (5-15); ASPARTATE AMINO TRANSFERASE 21 U/L (15-37); BILIRUBIN,TOTAL 0.1 MG/DL (0.2-1.0); BLOOD UREA NITROGEN 6 mg/dL (7-18); CALCIUM 7.7 MG/DL (8.5-10.1); CARBON DIOXIDE 28 MMOL/L (21-32); CHLORIDE 105 MMOL/L (98-107); CREATININE 0.5 MG/DL (0.55-1.30); PHOSPHORUS 2.4 MG/DL (2.5-4.9); POTASSIUM 3.1 MMOL/L (3.5-5.1); SODIUM 140 MMOL/L (136-145)
[2017-12-13] MEDS: NovoLOG Insulin Flexpen SUBQ SCH ×4 (05:43→23:42)
[2017-12-13] MEDS: PCA shift volume MISC SCH ×2 (07:28→19:23)
[2017-12-13 08:00] VITALS: BP 105/64
[2017-12-13] MEDS ORDERED: PCA Morphine 1mg/ml 30 ML IV PRN (08:36)
--- NOTE | 2017-12-13 08:51 | General Progress Note ---
Progress Note Progress Note AVSS Ambulated in hallways x2 yesterday. Good IS effort - chest clear Abdomen mildly distended, soft, healing incision and stoma, peggy scant serous Urine 2850 Gastrostomy 170 BCIR ileo 220 now enteric WBC 8600 Hgb 10.2 K down 3.1 P 2.4 Mg 1.7 Albumin 2.1 Imp. Ileus Plan; continue npo, TPN,morrell catheter (pelvic dissection) increase K,Mg and P f/u labs continue IV antibiotics as the bowel was open for a prolonged time during surgery Tyrone Conte MD Dec 13, 2017 08:51
[2017-12-13] MEDS ORDERED: Morphine Sulfate 4mg/ml Inj (IV/IM USE ONLY) IV PRN (09:45)
[2017-12-13] MEDS ORDERED: Morphine Sulfate 2mg/ml Inj IVP PRN (09:45)
[2017-12-13] MEDS ORDERED: Rate Change PCA 1 Each MISC PRN (09:45)
[2017-12-13] MEDS ORDERED: DiphenhydrAMINE 50mg/ml Inj IVP PRN (09:45)
[2017-12-13] MEDS ORDERED: Naloxone 0.4mg/ml Inj IVP PRN (09:45)
[2017-12-13] MEDS ORDERED: Potassium Phosphate 30 MM in NS 275 ML IV SCH (10:30)
[2017-12-13] MEDS ORDERED: Tubing IV Secondary IV ONE (10:51)
[2017-12-13] MEDS ORDERED: NS 500ML ONE (10:51)
[2017-12-13] MEDS: [UNRECOGNIZED DRUG - OTHER] IV SCH (11:13)
[2017-12-13] MEDS: D5 IV SCH (11:13)
[2017-12-13] MEDS: POTASSIUM CHLORIDE IV SCH (11:13)
[2017-12-13 12:00] VITALS: BP 104/64
[2017-12-13 16:00] VITALS: BP 97/67
[2017-12-13] MEDS ORDERED: ALPRAZolam 0.5mg tab ORAL PRN (16:30)
[2017-12-13 20:00] VITALS: BP 110/68
[2017-12-13] MEDS: ESTRADIOL 2 MG ORAL SCH (20:06)
[2017-12-13] MEDS: Dyna-Hex 2% Top Sol 2oz TOPIC SCH (20:06)
[2017-12-13] MEDS: Iron Sucrose 100 MG in NS 55 ML IV SCH (20:06)
[2017-12-13] MEDS: TPN IV SCH (20:15)
[2017-12-13] MEDS: FAT EMULSION 20% IV SCH (20:15)
[2017-12-14] VITALS: BP 97/53
[2017-12-14] MEDS: Metoclopramide 10mg/2ml Inj IVP SCH ×4 (02:48→20:12)
[2017-12-14 04:00] VITALS: BP 95/53
[2017-12-14 05:03] LABS: BASOPHILS % (AUTO) 0.7 % (0.0-2.0); EOSINOPHILS % (AUTO) 5.4 % (0.0-3.0); HEMATOCRIT 29.8 % (37.0-47.0); HEMOGLOBIN 9.6 G/DL (12.0-16.0); LYMPHOCYTES % (AUTO) 18.2 % (20.0-45.0); MEAN CORPUSCULAR VOLUME 84 FL (80-99); MONOCYTES % (AUTO) 9.9 % (1.0-10.0); NEUTROPHILS % (AUTO) 65.8 % (45.0-75.0); PLATELET COUNT 185 K/UL (150-450); RED BLOOD COUNT 3.55 M/UL (4.20-5.40); RED CELL DISTRIBUTION WIDTH 11.9 % (11.6-14.8); WHITE BLOOD COUNT 7.9 K/UL (4.8-10.8)
[2017-12-14 05:20] LABS: ANION GAP 7 mmol/L (5-15); BLOOD UREA NITROGEN 9 mg/dL (7-18); CALCIUM 7.7 MG/DL (8.5-10.1); CARBON DIOXIDE 27 MMOL/L (21-32); CHLORIDE 106 MMOL/L (98-107); CREATININE 0.5 MG/DL (0.55-1.30); PHOSPHORUS 3.2 MG/DL (2.5-4.9); POTASSIUM 3.6 MMOL/L (3.5-5.1); SODIUM 140 MMOL/L (136-145)
[2017-12-14] MEDS: Ampicillin/Sulbactam Sod 3 GM in NS 110 ML IV SCH ×3 (05:39→17:44)
[2017-12-14] MEDS: NovoLOG Insulin Flexpen SUBQ SCH ×3 (05:47→17:45)
[2017-12-14] MEDS: PCA shift volume MISC SCH ×2 (07:08→19:24)
[2017-12-14 08:00] VITALS: BP 110/71
[2017-12-14] MEDS: PCA Morphine 1mg/ml 30 ML IV PRN (09:47)
--- NOTE | 2017-12-14 10:04 | General Progress Note ---
Progress Note Progress Note AVSS c/o anxiety despite low dose Xanax - will increase dosing. Ambulates well Abdomen still soft mild distention, healing nicely Urine 3350 Gastrostomy 340 BCIR ileo 410 WBC 7900 Hgb 9.6 K up 3.6 P/Mg - wnl Imp. Ileus anxiety Plan; continue npo, TPN hopefully can d/c urinary Block in AM Tyrone Conte MD Dec 14, 2017 10:04
[2017-12-14] MEDS: [UNRECOGNIZED DRUG - OTHER] IV SCH ×2 (10:30→16:19)
[2017-12-14] MEDS: D5 IV SCH ×2 (10:30→16:19)
[2017-12-14] MEDS ORDERED: DiphenhydrAMINE 50mg/ml Inj IVP PRN (10:30)
[2017-12-14] MEDS: POTASSIUM CHLORIDE IV SCH ×2 (10:30→16:19)
[2017-12-14] MEDS ORDERED: Naloxone 0.4mg/ml Inj IVP PRN (10:30)
[2017-12-14] MEDS ORDERED: Morphine Sulfate 2mg/ml Inj IVP PRN (10:30)
[2017-12-14] MEDS ORDERED: Rate Change PCA 1 Each MISC PRN (10:30)
[2017-12-14] MEDS ORDERED: Morphine Sulfate 4mg/ml Inj (IV/IM USE ONLY) IV PRN (10:30)
[2017-12-14] MEDS ORDERED: NS Irrig 1000ml ONE (10:33)
[2017-12-14] MEDS ORDERED: Tubing IV Secondary IV ONE (10:33)
[2017-12-14] MEDS ORDERED: NS 500ML ONE (10:33)
[2017-12-14] MEDS: ALPRAZolam 0.5mg tab ORAL PRN ×2 (10:42→20:11)
[2017-12-14 12:00] VITALS: BP 91/54
[2017-12-14 16:00] VITALS: BP 95/63
[2017-12-14 20:00] VITALS: BP 104/65
[2017-12-14] MEDS: Iron Sucrose 100 MG in NS 55 ML IV SCH (20:11)
[2017-12-14] MEDS: Dyna-Hex 2% Top Sol 2oz TOPIC SCH (20:11)
[2017-12-14] MEDS: ESTRADIOL 2 MG ORAL SCH (20:13)
[2017-12-14] MEDS: FAT EMULSION 20% IV SCH (20:15)
[2017-12-14] MEDS: TPN IV SCH (20:15)
[2017-12-15] VITALS: BP 94/63
[2017-12-15] MEDS: Metoclopramide 10mg/2ml Inj IVP SCH ×4 (03:22→20:48)
[2017-12-15 04:00] VITALS: BP 91/57
[2017-12-15 05:18] LABS: BASOPHILS % (AUTO) 0.7 % (0.0-2.0); EOSINOPHILS % (AUTO) 5.5 % (0.0-3.0); HEMATOCRIT 29.7 % (37.0-47.0); HEMOGLOBIN 9.6 G/DL (12.0-16.0); LYMPHOCYTES % (AUTO) 23.3 % (20.0-45.0); MEAN CORPUSCULAR VOLUME 83 FL (80-99); MONOCYTES % (AUTO) 9.9 % (1.0-10.0); NEUTROPHILS % (AUTO) 60.6 % (45.0-75.0); PLATELET COUNT 210 K/UL (150-450); RED BLOOD COUNT 3.57 M/UL (4.20-5.40); RED CELL DISTRIBUTION WIDTH 12.1 % (11.6-14.8)
[2017-12-15 05:29] LABS: ANION GAP 6 mmol/L (5-15); BLOOD UREA NITROGEN 11 mg/dL (7-18); CALCIUM 7.8 MG/DL (8.5-10.1); CARBON DIOXIDE 27 MMOL/L (21-32); CHLORIDE 105 MMOL/L (98-107); CREATININE 0.6 MG/DL (0.55-1.30); POTASSIUM 4.2 MMOL/L (3.5-5.1); SODIUM 138 MMOL/L (136-145)
[2017-12-15] MEDS: Ampicillin/Sulbactam Sod 3 GM in NS 110 ML IV SCH ×4 (05:31→11:42)
[2017-12-15] MEDS: NovoLOG Insulin Flexpen SUBQ SCH ×4 (05:52→18:00)
[2017-12-15] MEDS: PCA Morphine 1mg/ml 30 ML IV PRN (06:52)
[2017-12-15] MEDS: PCA shift volume MISC SCH ×2 (07:27→19:00)
[2017-12-15 08:00] VITALS: BP 106/67
--- NOTE | 2017-12-15 10:29 | General Progress Note ---
Progress Note Progress Note AVSS Ambulates several times a day. Abdomen soft, mild distention, healing nicely, peggy - nil Urine 2125 Gastrostomy 340 BCIR ileo 460 Hgb 9.6 stable BMP-wnl Imp. Ileus Plan: D/C urinary morrell d/c antibiotics continue npo, TPN Tyrone Conte MD Dec 15, 2017 10:29
[2017-12-15] MEDS ORDERED: Naloxone 0.4mg/ml Inj IVP PRN (10:30)
[2017-12-15] MEDS ORDERED: Rate Change PCA 1 Each MISC PRN (10:30)
[2017-12-15] MEDS ORDERED: PCA Morphine 1mg/ml 30 ML IV PRN (10:30)
[2017-12-15] MEDS ORDERED: Morphine Sulfate 2mg/ml Inj IVP PRN (10:30)
[2017-12-15] MEDS ORDERED: Morphine Sulfate 4mg/ml Inj (IV/IM USE ONLY) IV PRN (10:30)
[2017-12-15] MEDS ORDERED: DiphenhydrAMINE 50mg/ml Inj IVP PRN (10:30)
[2017-12-15 12:00] VITALS: BP 97/59
[2017-12-15 16:00] VITALS: BP 95/57
[2017-12-15] MEDS: ALPRAZolam 0.5mg tab ORAL PRN (19:24)
[2017-12-15 20:00] VITALS: BP 99/60
[2017-12-15] MEDS: Dyna-Hex 2% Top Sol 2oz TOPIC SCH (20:47)
[2017-12-15] MEDS: Iron Sucrose 100 MG in NS 55 ML IV SCH (20:48)
[2017-12-15] MEDS: FAT EMULSION 20% IV SCH (20:51)
[2017-12-15] MEDS: ESTRADIOL 2 MG ORAL SCH (20:51)
[2017-12-15] MEDS: TPN IV SCH (20:51)
[2017-12-15] MEDS ORDERED: Simethicone 80mg tab ORAL SCH (21:50)
[2017-12-16] VITALS: BP 111/72
[2017-12-16] MEDS: NovoLOG Insulin Flexpen SUBQ SCH ×4 (00:18→18:00)
[2017-12-16] MEDS: Simethicone 80mg tab ORAL PRN (01:14)
[2017-12-16] MEDS: Metoclopramide 10mg/2ml Inj IVP SCH ×2 (02:40→08:37)
[2017-12-16 04:00] VITALS: BP 108/63
[2017-12-16 05:54] LABS: BASOPHILS % (AUTO) 0.9 % (0.0-2.0); EOSINOPHILS % (AUTO) 6.1 % (0.0-3.0); HEMATOCRIT 31.3 % (37.0-47.0); HEMOGLOBIN 10.1 G/DL (12.0-16.0); LYMPHOCYTES % (AUTO) 22.5 % (20.0-45.0); MEAN CORPUSCULAR VOLUME 84 FL (80-99); MONOCYTES % (AUTO) 10.5 % (1.0-10.0); PLATELET COUNT 243 K/UL (150-450); RED BLOOD COUNT 3.73 M/UL (4.20-5.40); RED CELL DISTRIBUTION WIDTH 12.3 % (11.6-14.8); WHITE BLOOD COUNT 7.4 K/UL (4.8-10.8)
[2017-12-16 05:58] LABS: ANION GAP 7 mmol/L (5-15); BLOOD UREA NITROGEN 12 mg/dL (7-18); CALCIUM 8.3 MG/DL (8.5-10.1); CARBON DIOXIDE 28 MMOL/L (21-32); CHLORIDE 103 MMOL/L (98-107); CREATININE 0.6 MG/DL (0.55-1.30); SODIUM 137 MMOL/L (136-145)
[2017-12-16] MEDS: PCA shift volume MISC SCH ×2 (07:00→19:00)
[2017-12-16 08:00] VITALS: BP 108/67
[2017-12-16] MEDS ORDERED: Naloxone 0.4mg/ml Inj IVP PRN (09:00)
[2017-12-16] MEDS ORDERED: Rate Change PCA 1 Each MISC PRN (09:00)
--- NOTE | 2017-12-16 09:13 | General Progress Note ---
Progress Note Progress Note AVSS Having intermittent nausea and small bilious emesis, and c/o gas pains/ cramps Abdomen not distended, healing nicely, peggy - nil drainage urine 3000 voiding Gastrostomy 290 bilious BCIR ileo 180 bilious Hgb up 10.1 Labs ok except Mg 1.7 Imp. Nausea/emesis ? etiology Plan: Balloon of gastrostomy catheter partially deflated Stat portable KUB XRay May need CT scan abd+pelvis Increase Mg IV continue npo, TPN Tyrone Conte MD Dec 16, 2017 09:13
[2017-12-16] MEDS ORDERED: DiphenhydrAMINE 50mg/ml Inj IVP PRN (09:30)
[2017-12-16] MEDS ORDERED: Morphine Sulfate 2mg/ml Inj IVP PRN (09:30)
[2017-12-16] MEDS ORDERED: Morphine Sulfate 4mg/ml Inj (IV/IM USE ONLY) IV PRN (09:30)
[2017-12-16] MEDS ORDERED: PCA Morphine 1mg/ml 30 ML IV PRN (09:30)
[2017-12-16] MEDS: POTASSIUM CHLORIDE IV SCH (10:56)
[2017-12-16] MEDS: D5 IV SCH (10:56)
[2017-12-16] MEDS: [UNRECOGNIZED DRUG - OTHER] IV SCH (10:56)
[2017-12-16] MEDS: ALPRAZolam 0.5mg tab ORAL PRN ×2 (11:05→19:05)
--- NOTE | 2017-12-16 11:31 | Diagnostic Imaging Report ---
Indication: Abdominal pain Comparison: None Single view of the abdomen obtained Findings: Bowel gas pattern is nonspecific although there is a relative paucity of bowel gas. Patient is recently postop with the long vertical incision skin lauren noted. Sutures noted in the pelvic region. No mass, ectopic calcifications, or abnormal gas collections are identified. The bones are unremarkable. Impression: No acute findings. Recently postop
[2017-12-16 12:00] VITALS: BP 105/66
[2017-12-16 16:00] VITALS: BP 107/66
[2017-12-16 20:00] VITALS: BP 93/54
[2017-12-16] MEDS: Iron Sucrose 100 MG in NS 55 ML IV SCH (20:19)
[2017-12-16] MEDS: Dyna-Hex 2% Top Sol 2oz TOPIC SCH (20:20)
[2017-12-16] MEDS: ESTRADIOL 2 MG ORAL SCH (20:20)
[2017-12-16] MEDS: FAT EMULSION 20% IV SCH (20:35)
[2017-12-16] MEDS: TPN IV SCH (20:35)
[2017-12-17] VITALS: BP 100/59
[2017-12-17 04:00] VITALS: BP 91/57
[2017-12-17 05:46] LABS: EOSINOPHILS % (AUTO) 5.3 % (0.0-3.0); HEMATOCRIT 30.9 % (37.0-47.0); HEMOGLOBIN 10.2 G/DL (12.0-16.0); LYMPHOCYTES % (AUTO) 17.3 % (20.0-45.0); MEAN CORPUSCULAR VOLUME 84 FL (80-99); MONOCYTES % (AUTO) 9.2 % (1.0-10.0); NEUTROPHILS % (AUTO) 67.1 % (45.0-75.0); PLATELET COUNT 261 K/UL (150-450); RED BLOOD COUNT 3.68 M/UL (4.20-5.40); RED CELL DISTRIBUTION WIDTH 12.5 % (11.6-14.8); WHITE BLOOD COUNT 8.1 K/UL (4.8-10.8)
[2017-12-17] MEDS: NovoLOG Insulin Flexpen SUBQ SCH ×5 (06:00→23:46)
[2017-12-17 06:16] LABS: ALANINE AMINOTRANSFERASE 23 U/L (12-78); ALBUMIN 2.3 G/DL (3.4-5.0); ALBUMIN/GLOBULIN RATIO 0.6 (1.0-2.7); ALKALINE PHOSPHATASE 127 U/L (46-116); ANION GAP 8 mmol/L (5-15); ASPARTATE AMINO TRANSFERASE 27 U/L (15-37); BILIRUBIN,TOTAL 0.8 MG/DL (0.2-1.0); BLOOD UREA NITROGEN 12 mg/dL (7-18); CALCIUM 8.2 MG/DL (8.5-10.1); CARBON DIOXIDE 27 MMOL/L (21-32); CHLORIDE 103 MMOL/L (98-107); CREATININE 0.6 MG/DL (0.55-1.30); POTASSIUM 4.2 MMOL/L (3.5-5.1); SODIUM 138 MMOL/L (136-145)
[2017-12-17] MEDS: PCA shift volume MISC SCH ×2 (07:12→19:21)
[2017-12-17 07:49] VITALS: BP 115/69
[2017-12-17] MEDS ORDERED: Naloxone 0.4mg/ml Inj IVP PRN (09:14)
[2017-12-17] MEDS ORDERED: Morphine Sulfate 4mg/ml Inj (IV/IM USE ONLY) IV PRN (09:30)
[2017-12-17] MEDS ORDERED: PCA Morphine 1mg/ml 30 ML IV PRN (09:30)
[2017-12-17] MEDS ORDERED: Morphine Sulfate 2mg/ml Inj IVP PRN (09:30)
[2017-12-17] MEDS ORDERED: DiphenhydrAMINE 50mg/ml Inj IVP PRN (09:30)
--- NOTE | 2017-12-17 09:35 | General Progress Note ---
Progress Note Progress Note AVSS Nausea and emesis fully resolved. Abdomen soft, healing nicely Urine 2200 Gastrostomy 390 BCIR ileo 220 WBC 8700 Hgb 10.2 Mg 1.7 Albumin up 2.3 Imp. Ileus resolving Plan: clear liquid diet gastrostomy 3:3 protocol continue TPN Tyrone Conte MD Dec 17, 2017 09:35
[2017-12-17] MEDS: Lidocaine HCl 2% Jelly 5ml Tube TOPIC PRN ×2 (10:12→14:17)
[2017-12-17] MEDS: POTASSIUM CHLORIDE IV SCH (10:44)
[2017-12-17] MEDS: [UNRECOGNIZED DRUG - OTHER] IV SCH (10:44)
[2017-12-17] MEDS: D5 IV SCH (10:44)
[2017-12-17 12:00] VITALS: BP 115/73
[2017-12-17 16:00] VITALS: BP 124/72
[2017-12-17] MEDS: Dyna-Hex 2% Top Sol 2oz TOPIC SCH (19:55)
[2017-12-17] MEDS: Simethicone 80mg tab ORAL PRN (19:56)
[2017-12-17] MEDS: ALPRAZolam 0.5mg tab ORAL PRN (19:56)
[2017-12-17] MEDS: TPN IV SCH (19:57)
[2017-12-17] MEDS: FAT EMULSION 20% IV SCH (19:57)
[2017-12-17] MEDS: ESTRADIOL 2 MG ORAL SCH (20:05)
[2017-12-17 20:32] VITALS: BP 108/72
[2017-12-18 00:29] VITALS: BP 102/70
[2017-12-18] MEDS: Metoclopramide 10mg/2ml Inj IVP PRN ×2 (01:24→09:57)
[2017-12-18 04:00] VITALS: BP 105/68
[2017-12-18 04:57] LABS: BASOPHILS % (AUTO) 0.7 % (0.0-2.0); EOSINOPHILS % (AUTO) 3.8 % (0.0-3.0); HEMATOCRIT 35.8 % (37.0-47.0); HEMOGLOBIN 11.5 G/DL (12.0-16.0); LYMPHOCYTES % (AUTO) 11.1 % (20.0-45.0); MEAN CORPUSCULAR VOLUME 84 FL (80-99); MONOCYTES % (AUTO) 6.6 % (1.0-10.0); NEUTROPHILS % (AUTO) 77.9 % (45.0-75.0); PLATELET COUNT 338 K/UL (150-450); RED BLOOD COUNT 4.26 M/UL (4.20-5.40); RED CELL DISTRIBUTION WIDTH 12.8 % (11.6-14.8); WHITE BLOOD COUNT 10.4 K/UL (4.8-10.8)
[2017-12-18 05:10] LABS: ANION GAP 9 mmol/L (5-15); BLOOD UREA NITROGEN 14 mg/dL (7-18); CALCIUM 8.6 MG/DL (8.5-10.1); CARBON DIOXIDE 26 MMOL/L (21-32); CHLORIDE 102 MMOL/L (98-107); CREATININE 0.7 MG/DL (0.55-1.30); POTASSIUM 4.7 MMOL/L (3.5-5.1); SODIUM 137 MMOL/L (136-145)
[2017-12-18] MEDS: NovoLOG Insulin Flexpen SUBQ SCH ×3 (05:54→17:57)
[2017-12-18] MEDS: Simethicone 80mg tab ORAL PRN (05:55)
[2017-12-18] MEDS: PCA shift volume MISC SCH ×2 (07:30→19:22)
[2017-12-18 07:55] VITALS: BP 101/66
[2017-12-18] MEDS ORDERED: DiphenhydrAMINE 50mg/ml Inj IVP PRN (09:45)
[2017-12-18] MEDS ORDERED: Naloxone 0.4mg/ml Inj IVP PRN (09:45)
[2017-12-18] MEDS ORDERED: PCA Morphine 1mg/ml 30 ML IV PRN (09:45)
[2017-12-18] MEDS ORDERED: Morphine Sulfate 4mg/ml Inj (IV/IM USE ONLY) IV PRN (09:45)
[2017-12-18] MEDS ORDERED: Morphine Sulfate 2mg/ml Inj IVP PRN (09:45)
--- NOTE | 2017-12-18 09:48 | General Progress Note ---
Progress Note Progress Note Did not tolerate po fluids - had cramps then nausea and small emesis and gastrostomy placed back to continuous drainage Abdomen soft, non-distended, incision clean. Urine 1100 Gastrostomy 615 BCIR ileo 365 labs ok - Mg up 2.2 Imp. R/O partial SBO Plan: STAT CT scan abd+pelvis with oral and IV contrast npo - continue TPN Tyrone Conte MD Dec 18, 2017 09:48
[2017-12-18] MEDS ORDERED: ALPRAZolam 0.5mg tab ORAL PRN (10:00)
[2017-12-18] MEDS: D5 IV SCH (10:30)
[2017-12-18] MEDS: POTASSIUM CHLORIDE IV SCH (10:30)
[2017-12-18] MEDS: [UNRECOGNIZED DRUG - OTHER] IV SCH (10:30)
[2017-12-18 12:00] VITALS: BP 131/72
[2017-12-18] MEDS: D5 1/2NS w/KCl 20mEq 1,000 ML IV SCH (12:08)
--- NOTE | 2017-12-18 13:19 | Diagnostic Imaging Report ---
Clinical Indication: Nausea and vomiting, history of total colectomy and Sheppard continent ileostomy Technique: Patient given enteric contrast through gastrostomy IV administration nonionic contrast. Venous phase spiral acquisition obtained through the abdomen and pelvis. Multiplanar reconstructions were generated. Total dose length product 533.79 mGycm. CTDIvol(s) 11.22 mGy. Dose reduction achieved using automated exposure control Comparison: none Findings: There is evidence of prior near-total colectomy with Guille procedure. There is a right lower quadrant continent ileostomy. A catheter is present deep within the ileostomy pouch. Contrast was injected through a gastrostomy tube. The duodenum and proximal jejunum are dilated. There is gradual tapering of the dilated jejunum to normal caliber at the level of the proximal jejunum. Contrast is seen within distal small bowel, but stops just short of the ileostomy and does not enter it. There is a midline incision and midline skin staple line. Trace fluid is seen peripheral to the ileostomy pouch on both sides. No other extraluminal fluid collections are demonstrated. There is a slight degree of inflammation of the pelvic fat. There is a small gas-filled linear tract extending through the subcutaneous fat just inferior to the ileostomy site. No other extraluminal gas demonstrated. The stomach is distended. A gastrostomy appears to be in good position. The liver, gallbladder, bile ducts, pancreas, spleen, adrenals are unremarkable. The kidneys demonstrate subcentimeter low-attenuation lesions which are too small to characterize, most likely benign simple cortical cysts. There is mild fullness to the left renal collecting system The included lung bases are clear. The bones are unremarkable Impression: Postsurgical changes, as described Dilated proximal jejunum, with gradual tapering to normal caliber small bowel fairly proximally. Contrast is seen throughout most of the small bowel, does not quite reach the pouch. Dilated proximal jejunum is probably on the basis of postoperative ileus Trace fluid surrounding the pouch on both sides, most likely routine postoperative fluid although inflected collections cannot be completely ruled out. Small gas-filled linear tract extending through subcutaneous fat just inferior to the ileostomy site. This could represent a laparoscopy port Nonspecific mild left renal collecting system fullness, without downstream obstructive lesion, significance uncertain but doubtful Gastrostomy in good position. Mild gastric distention, despite such. The CT scanner at [facility] is accredited by the [employer] and the scans are performed using protocols designed to limit radiation exposure to as low as reasonably achievable to attain images of sufficient resolution adequate for diagnostic evaluation.
[2017-12-18 16:00] VITALS: BP 93/67
[2017-12-18 20:00] VITALS: BP 119/75
[2017-12-18] MEDS: FAT EMULSION 20% IV SCH (20:08)
[2017-12-18] MEDS: TPN IV SCH (20:08)
[2017-12-18] MEDS: Dyna-Hex 2% Top Sol 2oz TOPIC SCH (20:08)
[2017-12-18] MEDS: ESTRADIOL 2 MG ORAL SCH (20:08)
[2017-12-19] VITALS: BP 103/66
[2017-12-19] MEDS: NovoLOG Insulin Flexpen SUBQ SCH ×5 (00:11→23:49)
[2017-12-19 04:23] VITALS: BP 98/57
[2017-12-19 06:16] LABS: BASOPHILS % (AUTO) 1.4 % (0.0-2.0); EOSINOPHILS % (AUTO) 6.9 % (0.0-3.0); HEMATOCRIT 33.2 % (37.0-47.0); LYMPHOCYTES % (AUTO) 17.2 % (20.0-45.0); MEAN CORPUSCULAR VOLUME 86 FL (80-99); MONOCYTES % (AUTO) 10.3 % (1.0-10.0); NEUTROPHILS % (AUTO) 64.2 % (45.0-75.0); PLATELET COUNT 314 K/UL (150-450); RED BLOOD COUNT 3.89 M/UL (4.20-5.40); RED CELL DISTRIBUTION WIDTH 13.6 % (11.6-14.8); WHITE BLOOD COUNT 8.2 K/UL (4.8-10.8)
[2017-12-19 06:34] LABS: ANION GAP 9 mmol/L (5-15); BLOOD UREA NITROGEN 18 mg/dL (7-18); CALCIUM 8.4 MG/DL (8.5-10.1); CARBON DIOXIDE 26 MMOL/L (21-32); CHLORIDE 103 MMOL/L (98-107); CREATININE 0.6 MG/DL (0.55-1.30); SODIUM 138 MMOL/L (136-145)
[2017-12-19] MEDS: PCA shift volume MISC SCH ×2 (07:00→19:21)
[2017-12-19 08:00] VITALS: BP 106/60
[2017-12-19] MEDS: Phytonadione 10 mg/mL 1ml amp SUBQ SCH (08:26)
[2017-12-19] MEDS: D5 1/2NS w/KCl 20mEq 1,000 ML IV SCH (08:26)
--- NOTE | 2017-12-19 08:52 | General Progress Note ---
Progress Note Progress Note AVSS Feeling much better with no abd pain or cramping, no nausea or emesis Abdomen soft, healing nicely overnight 12 hours: urine 650 gastrostomy 170 BCIR ileo 120 CBC and BMP all wnl Imp: Improved prolonged ileus vs. partial SBO Plan: Continue npo and TPN and gastrostomy to drainage If continue well tomorrow will resume clear liquid diet and gastrostomy 3:3 protocol maintain continuous drainage of BCIR pouch leave peggy drain until she is eating Tyrone Conte MD Dec 19, 2017 08:52
[2017-12-19] MEDS ORDERED: PCA Morphine 1mg/ml 30 ML IV PRN (09:00)
[2017-12-19] MEDS ORDERED: Morphine Sulfate 2mg/ml Inj IVP PRN (09:00)
[2017-12-19] MEDS ORDERED: Naloxone 0.4mg/ml Inj IVP PRN (09:00)
[2017-12-19] MEDS ORDERED: DiphenhydrAMINE 50mg/ml Inj IVP PRN (09:00)
[2017-12-19 12:00] VITALS: BP 109/62
[2017-12-19 16:00] VITALS: BP 108/61
[2017-12-19 20:00] VITALS: BP 108/62
[2017-12-19] MEDS: Dyna-Hex 2% Top Sol 2oz TOPIC SCH (20:00)
[2017-12-19] MEDS: ESTRADIOL 2 MG ORAL SCH (20:01)
[2017-12-19] MEDS: FAT EMULSION 20% IV SCH (20:13)
[2017-12-19] MEDS: TPN IV SCH (20:13)
[2017-12-19] MEDS: Simethicone 80mg tab ORAL PRN (23:41)
[2017-12-20] VITALS: BP 112/75
[2017-12-20] MEDS: D5 1/2NS w/KCl 20mEq 1,000 ML IV SCH ×2 (03:04→23:12)
[2017-12-20 04:00] VITALS: BP 106/67
[2017-12-20] MEDS: NovoLOG Insulin Flexpen SUBQ SCH ×4 (06:00→23:17)
[2017-12-20 06:29] LABS: BASOPHILS % (AUTO) 0.9 % (0.0-2.0); EOSINOPHILS % (AUTO) 5.5 % (0.0-3.0); HEMATOCRIT 32.6 % (37.0-47.0); HEMOGLOBIN 11.1 G/DL (12.0-16.0); LYMPHOCYTES % (AUTO) 17.3 % (20.0-45.0); MEAN CORPUSCULAR VOLUME 85 FL (80-99); MONOCYTES % (AUTO) 8.7 % (1.0-10.0); NEUTROPHILS % (AUTO) 67.6 % (45.0-75.0); PLATELET COUNT 314 K/UL (150-450); RED BLOOD COUNT 3.82 M/UL (4.20-5.40); RED CELL DISTRIBUTION WIDTH 13.9 % (11.6-14.8); WHITE BLOOD COUNT 5.6 K/UL (4.8-10.8)
[2017-12-20 06:57] LABS: ALANINE AMINOTRANSFERASE 68 U/L (12-78); ALBUMIN 2.4 G/DL (3.4-5.0); ALBUMIN/GLOBULIN RATIO 0.5 (1.0-2.7); ALKALINE PHOSPHATASE 239 U/L (46-116); ANION GAP 7 mmol/L (5-15); ASPARTATE AMINO TRANSFERASE 85 U/L (15-37); BILIRUBIN,TOTAL 0.7 MG/DL (0.2-1.0); BLOOD UREA NITROGEN 13 mg/dL (7-18); CALCIUM 8.5 MG/DL (8.5-10.1); CARBON DIOXIDE 27 MMOL/L (21-32); CHLORIDE 102 MMOL/L (98-107); CREATININE 0.6 MG/DL (0.55-1.30); POTASSIUM 3.9 MMOL/L (3.5-5.1); SODIUM 136 MMOL/L (136-145)
[2017-12-20] MEDS: PCA shift volume MISC SCH ×2 (07:09→19:00)
[2017-12-20 08:00] VITALS: BP 108/60
[2017-12-20] MEDS ORDERED: NS Irrig 1000ml ONE (09:13)
[2017-12-20 12:00] VITALS: BP 108/66
--- NOTE | 2017-12-20 14:55 | General Progress Note ---
Progress Note Progress Note AVSS, labs okay. healing well. no nausea or emesis Abdomen soft, non distended, ostomy c/d/i urine 1150 gastrostomy 660 BCIR ileo 265 CBC and BMP all wnl Imp: Improved Plan: Start clear liquids and 3:3 today TPN today maintain continuous drainage of BCIR pouch leave peggy drain until she is eating Balwinder Patrick Dec 20, 2017 14:55
[2017-12-20 16:00] VITALS: BP 109/69
[2017-12-20] MEDS ORDERED: DiphenhydrAMINE 50mg/ml Inj IVP PRN (16:00)
[2017-12-20] MEDS ORDERED: Morphine Sulfate 2mg/ml Inj IVP PRN (16:00)
[2017-12-20] MEDS ORDERED: Naloxone 0.4mg/ml Inj IVP PRN (16:00)
[2017-12-20] MEDS ORDERED: PCA Morphine 1mg/ml 30 ML IV PRN (16:00)
[2017-12-20] MEDS: FAT EMULSION 20% IV SCH (19:53)
[2017-12-20] MEDS: TPN IV SCH (19:53)
[2017-12-20] MEDS: Dyna-Hex 2% Top Sol 2oz TOPIC SCH (19:54)
[2017-12-20 20:00] VITALS: BP 118/78
[2017-12-20] MEDS: ESTRADIOL 2 MG ORAL SCH (20:00)
[2017-12-21] VITALS: BP 107/56
[2017-12-21 04:00] VITALS: BP 104/57
[2017-12-21] MEDS: NovoLOG Insulin Flexpen SUBQ SCH ×3 (05:54→18:00)
[2017-12-21 07:21] LABS: ALANINE AMINOTRANSFERASE 129 U/L (12-78); ALBUMIN 2.5 G/DL (3.4-5.0); ALBUMIN/GLOBULIN RATIO 0.5 (1.0-2.7); ALKALINE PHOSPHATASE 291 U/L (46-116); ANION GAP 8 mmol/L (5-15); ASPARTATE AMINO TRANSFERASE 113 U/L (15-37); BILIRUBIN,TOTAL 0.4 MG/DL (0.2-1.0); BLOOD UREA NITROGEN 14 mg/dL (7-18); CALCIUM 8.7 MG/DL (8.5-10.1); CARBON DIOXIDE 27 MMOL/L (21-32); CHLORIDE 102 MMOL/L (98-107); CREATININE 0.6 MG/DL (0.55-1.30); POTASSIUM 3.7 MMOL/L (3.5-5.1); SODIUM 137 MMOL/L (136-145)
[2017-12-21] MEDS: PCA shift volume MISC SCH (07:21)
[2017-12-21 07:36] LABS: BASOPHILS % (AUTO) 1.4 % (0.0-2.0); EOSINOPHILS % (AUTO) 6.3 % (0.0-3.0); HEMATOCRIT 33.9 % (37.0-47.0); HEMOGLOBIN 11.3 G/DL (12.0-16.0); LYMPHOCYTES % (AUTO) 17.1 % (20.0-45.0); MEAN CORPUSCULAR VOLUME 85 FL (80-99); MONOCYTES % (AUTO) 11.9 % (1.0-10.0); NEUTROPHILS % (AUTO) 63.3 % (45.0-75.0); PLATELET COUNT 327 K/UL (150-450); RED BLOOD COUNT 3.99 M/UL (4.20-5.40); RED CELL DISTRIBUTION WIDTH 13.7 % (11.6-14.8); WHITE BLOOD COUNT 6.9 K/UL (4.8-10.8)
[2017-12-21 08:00] VITALS: BP 127/74
[2017-12-21] MEDS ORDERED: NS Irrig 1000ml ONE (10:44)
[2017-12-21 12:00] VITALS: BP 101/65
--- NOTE | 2017-12-21 13:10 | General Progress Note ---
Progress Note Progress Note Surgery: no acute events. states she feels great. no pain. no n/v/f/c. tolerating clears. AVSS, labs okay. healing well. Abdomen soft, non distended, ostomy c/d/i urine 1400 gastrostomy 820 BCIR ileo 290 CBC and BMP all wnl Imp: Improved Plan: Full liquids and 1:1 today TPN until tolerating BCIR soft diet. once tolerating will consider weaning okay to d/c executive recruiter maintain continuous drainage of BCIR pouch leave peggy drain until she is eating Balwinder Patrick Dec 21, 2017 13:10
[2017-12-21] MEDS: Simethicone 80mg tab ORAL PRN (15:53)
[2017-12-21 16:00] VITALS: BP 105/60
[2017-12-21] MEDS: Ketorolac 30mg Inj IV PRN (19:00)
[2017-12-21] MEDS: D5 1/2NS w/KCl 20mEq 1,000 ML IV SCH (19:04)
[2017-12-21 20:00] VITALS: BP_SYST 106; BP_SYST 149; BP_DIAS 58; BP_DIAS 85
[2017-12-21] MEDS: FAT EMULSION 20% IV SCH (20:26)
[2017-12-21] MEDS: ESTRADIOL 2 MG ORAL SCH (20:26)
[2017-12-21] MEDS: Dyna-Hex 2% Top Sol 2oz TOPIC SCH (20:26)
[2017-12-21] MEDS: TPN IV SCH (20:26)
[2017-12-21] MEDS: Acetaminophen 650mg/20.3ml GT PRN (20:52)
[2017-12-22] VITALS: BP_SYST 101; BP_SYST 121; BP_DIAS 62; BP_DIAS 79
[2017-12-22] MEDS: NovoLOG Insulin Flexpen SUBQ SCH ×4 (00:40→18:00)
[2017-12-22 04:00] VITALS: BP 97/57
[2017-12-22] MEDS: Ketorolac 30mg Inj IV PRN ×2 (04:03→11:15)
[2017-12-22 05:37] LABS: BASOPHILS % (AUTO) 1.4 % (0.0-2.0); EOSINOPHILS % (AUTO) 6.6 % (0.0-3.0); HEMATOCRIT 36.9 % (37.0-47.0); HEMOGLOBIN 11.9 G/DL (12.0-16.0); MEAN CORPUSCULAR VOLUME 85 FL (80-99); MONOCYTES % (AUTO) 9.3 % (1.0-10.0); NEUTROPHILS % (AUTO) 62.7 % (45.0-75.0); PLATELET COUNT 347 K/UL (150-450); RED BLOOD COUNT 4.34 M/UL (4.20-5.40); RED CELL DISTRIBUTION WIDTH 13.4 % (11.6-14.8); WHITE BLOOD COUNT 8.1 K/UL (4.8-10.8)
[2017-12-22 05:48] LABS: ALANINE AMINOTRANSFERASE 104 U/L (12-78); ALBUMIN 2.6 G/DL (3.4-5.0); ALBUMIN/GLOBULIN RATIO 0.5 (1.0-2.7); ALKALINE PHOSPHATASE 294 U/L (46-116); ANION GAP 8 mmol/L (5-15); ASPARTATE AMINO TRANSFERASE 60 U/L (15-37); BILIRUBIN,TOTAL 0.4 MG/DL (0.2-1.0); BLOOD UREA NITROGEN 23 mg/dL (7-18); CALCIUM 8.8 MG/DL (8.5-10.1); CARBON DIOXIDE 29 MMOL/L (21-32); CHLORIDE 101 MMOL/L (98-107); CREATININE 0.7 MG/DL (0.55-1.30); POTASSIUM 3.7 MMOL/L (3.5-5.1); SODIUM 138 MMOL/L (136-145)
[2017-12-22 08:00] VITALS: BP 112/71
[2017-12-22 12:00] VITALS: BP 113/68
--- NOTE | 2017-12-22 13:52 | General Progress Note ---
Progress Note Progress Note Surgery: no acute events. states she feels great. no pain. no n/v/f/c. tolerating fulls AVSS, labs okay. healing well. Abdomen soft, non distended, ostomy c/d/i urine 1050 gastrostomy 820 BCIR ileo 2089 CBC and BMP all wnl Imp: Improved Plan: BCIR soft diet. plug gastrostomy. okay to unplug prn TPN until tolerating BCIR soft diet. once tolerating will consider weaning maintain continuous drainage of BCIR pouch leave peggy drain until she is eating Balwinder Patrick Dec 22, 2017 13:52
[2017-12-22 16:00] VITALS: BP 107/77
[2017-12-22] MEDS: D5 1/2NS w/KCl 20mEq 1,000 ML IV SCH (16:11)
[2017-12-22 18:12] LABS: APPEARANCE,URINE CLEAR; BILIRUBIN, URINE NEGATIVE (NEGATIVE); COLOR,URINE AMBER; GLUCOSE, URINE (UA) NEGATIVE (NEGATIVE); KETONES,URINE NEGATIVE (NEGATIVE); LEUKOCYTE ESTERASE ,URINE 1+ (NEGATIVE); NITRITE,URINE NEGATIVE (NEGATIVE); PH,URINE 6 (4.5-8.0); PROTEIN,URINE NEGATIVE (NEGATIVE); UROBILINOGEN,URINE NORMAL MG/DL (0.0-1.0)
[2017-12-22] MEDS ORDERED: Ketorolac 30mg Inj IV PRN (19:20)
[2017-12-22 20:00] VITALS: BP 98/59
[2017-12-22] MEDS: Dyna-Hex 2% Top Sol 2oz TOPIC SCH (20:33)
[2017-12-22] MEDS: ESTRADIOL 2 MG ORAL SCH (20:33)
[2017-12-22] MEDS: TPN IV SCH (20:36)
[2017-12-22] MEDS: FAT EMULSION 20% IV SCH (20:36)
[2017-12-23] VITALS: BP 104/63
[2017-12-23 04:00] VITALS: BP 100/63
[2017-12-23] MEDS: Simethicone 80mg tab ORAL PRN ×2 (04:24→13:52)
[2017-12-23] MEDS: NovoLOG Insulin Flexpen SUBQ SCH ×3 (06:00→12:00)
[2017-12-23 06:42] LABS: BASOPHILS % (AUTO) 1.7 % (0.0-2.0); EOSINOPHILS % (AUTO) 8.9 % (0.0-3.0); HEMATOCRIT 36.7 % (37.0-47.0); HEMOGLOBIN 11.8 G/DL (12.0-16.0); LYMPHOCYTES % (AUTO) 23.9 % (20.0-45.0); MEAN CORPUSCULAR VOLUME 86 FL (80-99); NEUTROPHILS % (AUTO) 56.4 % (45.0-75.0); PLATELET COUNT 368 K/UL (150-450); RED BLOOD COUNT 4.29 M/UL (4.20-5.40); RED CELL DISTRIBUTION WIDTH 13.5 % (11.6-14.8); WHITE BLOOD COUNT 7.2 K/UL (4.8-10.8)
[2017-12-23 07:10] LABS: ALANINE AMINOTRANSFERASE 157 U/L (12-78); ALBUMIN 2.6 G/DL (3.4-5.0); ALBUMIN/GLOBULIN RATIO 0.5 (1.0-2.7); ALKALINE PHOSPHATASE 346 U/L (46-116); ANION GAP 9 mmol/L (5-15); ASPARTATE AMINO TRANSFERASE 101 U/L (15-37); BILIRUBIN,TOTAL 0.3 MG/DL (0.2-1.0); BLOOD UREA NITROGEN 19 mg/dL (7-18); CALCIUM 8.8 MG/DL (8.5-10.1); CARBON DIOXIDE 28 MMOL/L (21-32); CHLORIDE 102 MMOL/L (98-107); CREATININE 0.7 MG/DL (0.55-1.30); SODIUM 138 MMOL/L (136-145)
[2017-12-23 08:00] VITALS: BP 110/71
[2017-12-23] MEDS ORDERED: ALPRAZolam 0.5mg tab ORAL PRN (09:00)
--- NOTE | 2017-12-23 09:26 | General Progress Note ---
Progress Note Progress Note AVSS Started BCIR diet last evening with continuous plugging of gastrostomy - tolerating so far c/o mid-back pain and spasms, concentrated urine with odor Having some mucous drainage per rectum Abdomen soft, lauren and sutures removed and steristrips applied Winsome drain removed Rectal exam - unremarkable Urine 950 Gastrostomy 585 BCIR ileo 1240 WBC 7200 Hgb 11.8 Albumin up 2.6 LFTs mildly elevated U/!A - ?? UTI C&S pending Imp. Improved Mid-back pain likely musculoskeletal Plan; D/C TPN Percocet 5/325 q4h prn pain Continue BCIR diet and gastrostomy plugged, continue IV fluids one more day then d/c and remove PIC Anticipate starting BCIR self-intubations with RN teaching/supervision in AM Tyrone Conte MD Dec 23, 2017 09:26
[2017-12-23] MEDS: D5 1/2NS w/KCl 20mEq 1,000 ML IV SCH ×2 (09:30→22:50)
[2017-12-23] MEDS ORDERED: Cyclobenzaprine 10mg Tab ORAL PRN (09:30)
[2017-12-23 12:01] VITALS: BP 103/69
[2017-12-23] MEDS: oxyCODONE HCL/Acetaminophen 5/325mg ORAL PRN ×2 (13:42→20:22)
[2017-12-23] MEDS: Metoclopramide 10mg/2ml Inj IVP PRN (16:05)
[2017-12-23 16:45] VITALS: BP 101/62
[2017-12-23] MEDS: Dyna-Hex 2% Top Sol 2oz TOPIC SCH (20:20)
[2017-12-23] MEDS: ESTRADIOL 2 MG ORAL SCH (20:21)
[2017-12-23 20:27] VITALS: BP 95/55
[2017-12-24] VITALS: BP 100/53
[2017-12-24] MEDS: Ascorbic Acid 500mg tab ORAL PRN ×4 (03:52→18:08)
[2017-12-24] MEDS: oxyCODONE HCL/Acetaminophen 5/325mg ORAL PRN ×3 (03:53→18:09)
[2017-12-24 04:28] VITALS: BP 92/52
[2017-12-24 08:00] VITALS: BP 105/67
--- NOTE | 2017-12-24 08:04 | General Progress Note ---
Progress Note Progress Note AVSS Eating 70% of meals with fair po intake. mid-back pain is improved and gas pains are decreased Abdomen soft. BCIR ileo catheter removed - reinserts readily Urine 1730 with IV fluids BCIR ileo 920 Imp. Improved Plan: Begin RN education/supervision of BCIR self-intubations: q2h from awakening to hs and 0200 continue strict I&O encourage po intake d/c IV fluids and remove PIC line now Tyrone Conte MD Dec 24, 2017 08:04
[2017-12-24 12:00] VITALS: BP 111/71
--- NOTE | 2017-12-24 14:29 | General Progress Note ---
Progress Note Progress Note doing well learning intubation technique for Sheppard Continent Ileostomy. Gastrostomy removed Urine C&S - no UTI Imp: doing well Plan; continue RN supervised/teaching of BCIR intubations q2h am to hs and 0200 continue strict I&O Tyrone Conte MD Dec 24, 2017 14:29
[2017-12-24 16:00] VITALS: BP 97/61
[2017-12-24] MEDS: Simethicone 80mg tab ORAL PRN (18:08)
[2017-12-24 20:00] VITALS: BP 117/62
[2017-12-24] MEDS: ESTRADIOL 2 MG ORAL SCH (21:02)
[2017-12-25] MEDS: Simethicone 80mg tab ORAL PRN ×4 (02:39→18:16)
[2017-12-25] MEDS: Ascorbic Acid 500mg tab ORAL PRN ×3 (02:39→18:16)
[2017-12-25] MEDS: oxyCODONE HCL/Acetaminophen 5/325mg ORAL PRN ×4 (02:40→18:16)
[2017-12-25 04:00] VITALS: BP 102/61
[2017-12-25 08:00] VITALS: BP 100/64
[2017-12-25 12:00] VITALS: BP 110/62
--- NOTE | 2017-12-25 15:43 | General Progress Note ---
Progress Note Progress Note Doing well learning BCIR intubation techniques. Some gas pains relieved with simethicone. Occasional use of Percocet for back/incisional pains ABdomen soft, gastrostomy site clean, stoma nicely healed Urine 1300 BCIR ileo 1040 Imp. doing well Plan: continue RN supervised BCIR self-intubations q2h and 0200 anticipate d/c in AM Rx Percocet 5/325 #40 Full supplies/instructions/limitations provided/discussed Tyrone Conte MD Dec 25, 2017 15:43
[2017-12-25 16:00] VITALS: BP 100/67
[2017-12-25 20:00] VITALS: BP 121/66
[2017-12-25] MEDS: ESTRADIOL 2 MG ORAL SCH (20:03)
[2017-12-26] VITALS: BP 100/60
[2017-12-26 04:00] VITALS: BP 104/76
[2017-12-26] MEDS: oxyCODONE HCL/Acetaminophen 5/325mg ORAL PRN (06:50)
[2017-12-26] MEDS: Simethicone 80mg tab ORAL PRN (06:50)
--- NOTE | 2017-12-26 07:40 | General Progress Note ---
Progress Note Progress Note Did well with BCIR intubations. Nicely healed Urine 1725 BCIR ileo 1115 po 1989 eating 70% Imp: Doing well Plan: discharge f/u 12/30 and prn Tyrone Conte MD Dec 26, 2017 07:40
[2017-12-26] MEDS ORDERED: NS Irrig 1000ml ONE (07:55)
--- NOTE | 2017-12-27 16:51 | Discharge Summary ---
Discharge Summary Discharge Summary _ DATE OF ADMISSION: 12/09/2017 DATE OF DISCHARGE: 12/26/2017 PACKAGING ASSEMBLER SURGEON: Balwinder Patrick M.D. BRIEF HOSPITAL COURSE: The patient is a 47-year-old female in overall good health with a history of colonic inertia, rectal outlet obstruction with a malfunctioning ileorectostomy was admitted to undergo surgery to take down her ileorectostomy and create a Sheppard continent intestinal reservoir continent ileostomy. The patient has a past history of colonic inertia, rectal prolapse and pelvic floor dysfunction and in 2013 underwent subtotal colectomy with ileosigmoidostomy. She had some continuing difficulties and then in October 2015 developed a volvulus at the anastomosis with a leak. The patient underwent operation with resection with conversion to an ileorectostomy and a temporary loop ileostomy. During the time that she had the loop ileostomy she had no gastrointestinal symptoms at all. In January 2016 the loop ileostomy was closed. She developed a right lower quadrant abscess drained by CT scan-guided drainage placement in February 2016 and she underwent surgery June 2016 to excise a right lower quadrant abscess tract of the abdominal wall. The patient had daily severe abdominal pain and nausea, bloating with every meal, and some rectal incontinence. She evacuates only with the help of her medications, Linzess which was started after January 2016. The patient developed small bowel obstruction in March of this year which resolved with NG suction. On the day of admission, she underwent insertion of a dual lumen PICC line and received intravenous hydration at the same time as her bowel prep. She was started on a clear liquid diet. She was given preoperative intravenous antibiotics the night before surgery and received preoperative subcutaneous heparin. On 12/10/2017, she underwent takedown and resection of failed ileorectostomy with creation of a Sheppard Continent Intestinal [place] and temporary catheter gastrostomy. She tolerated procedure well. Postop day #1, she was continued on npo. She was started on TPN. Temperature was 100, pulse 103. She was given morphine sulfate DIRECTOR PEOPLESOFT for pain control. Abdomen was distended, soft, incision was clean, stoma was pink, Emmet with moderate serosanguineous drainage. She was given replacements for vitamin B12 and folic acid. Postop day #2. Tmax 100.7. She had intermittent tachycardia and nausea despite Reglan every 6 hours and prn Zofran. She was encouraged incentive spirometry. Chest clear. She had right proximal forearm pain without any objective findings. Neurologic sensation intact to hands/fingers. Basal infusion of [employer] was discontinued. She was given demand dosing. She was encouraged to increase ambulation. She was given Venofer. Postop day #3. She had good IS effort. Chest clear. Abdomen was mildly distended and soft. Incision healing. Winsome has scant serous drainage. She was continued on npo with TPN. Increase potassium, magnesium and phosphorus. She was continued on IV antibiotics. She ambulated in the hallways. Postop day #4. She complained of anxiety despite low dose of Xanax. Dose was increased. Patient was ambulating well. Incision was healing nicely. Abdomen soft but mildly distended. Postop day #5. Patient was ambulating several times in a day. Abdomen was soft , with mild distention, incision healing. She was continued on npo. Block catheter was discontinued. Antibiotics discontinued. Postop day #6. She was having intermittent nausea and some small billious emesis, and complained of gas pains/cramps. Balloon gastrostomy catheter was partially deflated. A stat portable KUB was ordered. There were no acute findings. Postop day #7. Nausea and emesis resolved. Abdomen was soft. Ileus was resolving. She was eventually started on clear liquid diet, continue with TPN. Gastrostomy 3:3 protocol. Postop day #8. Patient did not tolerate po fluids. She had cramps and nausea and had small emesis. She was placed back to continuous drainage. She was placed back on npo. Stat CT scan of the abdomen and pelvis revealed mildly dilated jejunum without obstruction, and gastric distention with gastrostomy balloon in the antrum, ? partially obstructing. Suture was cut but could not withdrawal gastrostomy, balloon was deflated an additional 3cc. Postop day #9. Patient was feeling much better with no abdominal pain or cramping, no nausea or emesis. She was continued on npo and TPN with gastrostomy tube drainage. Winsome drain was kept in place until patient is able to tolerate po. Postop day #10. There was no nausea or emesis. Abdomen was soft, nondistended , ostomy was clean dry and intact. She was eventually started on clear liquid diet and 3:3 protocol. Maintain continuous drainage of BCIR pouch. Postop day #11. There was no vomiting, no nausea. She was tolerating diet. Diet was advanced to full liquid and 1:1 protocol. DIRECTOR PEOP[employer] was discontinued. She was given Percocet. To continue on TPN until tolerating BCIR soft diet. Maintain continuous drainage of BCIR pouch. Postop day #12. Patient was tolerating full liquid. She was eventually started on BCIR soft diet. Abdomen soft, nondistended. Postop day #13. Patient complained of mid back pain with spasms, urine was concentrated with odor. Patient had some mucus drainage per rectum. Abdomen was soft, lauren and sutures were removed and Steri-Strips were applied. Emmet drain was removed. Rectal examination was unremarkable. She was tolerating BCIR diet. TPN was discontinued. Postop day #14. Patient had fair po intake. Mid back pain improved and gas pains decreased. BCIR catheter was removed and reinserts readily. She was started on RN education/supervised BCIR self intubation. She was encouraged npo intake. IV fluids were discontinued. PICC line removed. Urine culture with no UTI. Gastrostomy was removed. Postop day #15. Patient was learning BCIR intubation techniques. She complained of gas pain, relieved with simethicone. She had occasional use of Percocet for back and incisional pains. Abdomen was soft, gastrostomy site clean, stoma nicely healed. She was continued on RN supervised BCIR self intubations. Anticipate DC following day. Postop day #16. Patient did well with BCIR intubations. Incisions are nicely healed. She was eating 70% of meal. She was cleared for discharge. PREOPERATIVE DIAGNOSES: 1. Colonic inertia and pelvic floor dysfunction with failed ileorectostomy 2. Recurrent small-bowel obstruction. 3. STATUS POST MULTIPLE ABDOMINAL OPERATIONS: 1. Total abdominal hysterectomy and bilateral salpingo-oophorectomy 1997 2. Subtotal colectomy with ileosigmoidostomy in 2013. 3. Resection of ileosigmoidostomy due to volvulus with anastomosis leak with conversion to ileorectostomy and temporary loop ileostomy October 2015 4. Closure of loop ileostomy in January 2016. 5. Excision of right lower quadrant abscess tract of abdominal wall June 2016 POSTOPERATIVE DIAGNOSES: 1. Colonic inertia and pelvic floor dysfunction with failed ileorectostomy 2. Recurrent small-bowel obstruction. 3. STATUS POST MULTIPLE ABDOMINAL OPERATIONS: 1. Total abdominal hysterectomy and bilateral salpingo-oophorectomy 1997 2. Subtotal colectomy with ileosigmoidostomy in 2013. 3. Resection of ileosigmoidostomy due to volvulus with anastomosis leak with conversion to ileorectostomy and temporary loop ileostomy October 2015 4. Closure of loop ileostomy in January 2016. 5. Excision of right lower quadrant abscess tract of abdominal wall June 2016 OPERATION PERFORMED: Takedown and resection of failed ileorectostomy with creation of a Sheppard Continent Intestinal [place] and temporary catheter gastrostomy. DISPOSITION: Patient was discharged home. DISCHARGE MEDICATIONS: Refer to Discharge Medication List. DISCHARGE INSTRUCTIONS: Follow up on 12/30/2017 and prn. I have been assigned to dictate discharge summary on this account, and I was not involved in the patient's management. Mary Diaz NP Dec 27, 2017 16:51
== END 2017-12-26 07:56 | disposition home or self-care (01) | DRG 330 ==
LOC: 3E 08:27
DX: K94.13 Enterostomy malfunction (principal); K56.50 Intestinal adhesions [bands], unspecified as to partial versus complete obstruction; E46 Unspecified protein-calorie malnutrition; J98.11 Atelectasis; K56.7 Ileus, unspecified; Z68.24 Body mass index [BMI] 24.0-24.9, adult; R00.0 Tachycardia, unspecified; R15.9 Full incontinence of feces; F41.9 Anxiety disorder, unspecified; M54.9 Dorsalgia, unspecified
CPT/HCPCS: 36415; 36569; 71045; 74018; 74177; 76937; 80048; 80053; 81003; 82040; 82607; 82728; 82746; 82962; 83540; 83550; 83735; 84100; 85025; 85610; 85730; 86850; 86900; 86901; 87086; 93005; 94003; 94150; J1815; J2250; J2405; J2710; J2765

== ENCOUNTER 2018-04-09 08:00 | Inpatient (IN) | payer OTHER ==
--- NOTE | 2018-04-07 16:45 | Pre-op HX & Phy Repo 2 SIG ---
DATE OF ADMISSION: 04/09/2018 HISTORY OF PRESENT ILLNESS: The patient is a 47-year-old female in overall good health with a history of colonic inertia and pelvic floor dysfunction who underwent surgery December 10, 2017 involving takedown of prior ileorectostomy and creation of a Sheppard continent intestinal reservoir. The patient did well postoperatively and was followed closely after her discharge on December 26, 2017. 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 She was doing very well at the end of January taking VSL probiotic and off of Flagyl and off Cipro. At the very end of February, she developed some difficulty intubating inserting her 30-Emirati silicone catheter about 2 to 3 inches into the stoma and some incontinence of gas. She was treated with Flagyl and Cipro without benefit. A local wildlife biology technician in [place] did pouch endoscopy finding a possible partial slipped valve and inserted a 28-Emirati Block catheter which became plugged up and several days later on April 02, underwent another endoscopy and a 30-Emirati catheter was put in place, which she has kept to a leg bag. She states that the catheter has come out and she was fortunately able to reinsert it, but there was incontinence of stool around the catheter through the stoma. The patient is scheduled to be admitted to undergo pouch endoscopy and preparation for surgery, which will require laparotomy and revision of her Sheppard type of [place] pouch continent ileostomy. MEDICATIONS: Valium 5 mg at night as needed for restless leg syndrome and estradiol 1 mg daily. ALLERGIES: Dilaudid causes shortness of breath and Demerol causes hives. OPERATIONS: In addition to all the intestinal operations which will be listed at the end of this dictation, the patient underwent MESHA and BSO in 1997. PHYSICAL EXAMINATION: GENERAL: The patient is 5 foot 1 inches approximately 120 pounds. [place] and will be examined upon arrival and dictated separately. IMPRESSION: 1. Malfunctioning Sheppard continent intestinal reservoir with difficulty with intubation and incontinence. 2. History of colonic inertia and pelvic floor dysfunction. 3. History of lupus. 4. History of fibromyalgia. 5. History of shoulder surgery. 54 Status post multiple abdominal operations. 1. Total abdominal hysterectomy and bilateral salpingo-oophorectomy 1997 2. Subtotal colectomy with ileosigmoidostomy 2013. 3. Resection of the ileosigmoidostomy due to volvulus and anastomosis leak with conversion to ileorectostomy with temporary loop ileostomy October 2015 4. Closure of loop ileostomy, January 2016. 5. Excision of right lower quadrant abscess tract of abdominal wall June 2016 6. Takedown of ileorectostomy with creation of Sheppard continent ileostomy December 10, 2017. PLAN: The patient will be admitted and undergo insertion of a dual lumen PICC line, bowel prep with concomitant intravenous hydration to prevent dehydration and continuous drainage of her Sheppard pouch. She will undergo pouch endoscopy and surgical revision. I will have a complete discussion in person with the patient when [place]. Tyrone Conte M.D. DR: Mitali JOB#: [id number] CC: LAM
[~2018-04-09] VITALS: Ht 160 cm; Wt 54.0 kg
[~2018-04-09 08:00] MED LIST: DIAZEPAM5 MG ORAL; ESTRACE1 MG ORAL
[2018-04-09 09:30] VITALS: BP 120/72
--- NOTE | 2018-04-09 09:30 | NUR ---
NURSE NOTES: ADMITTED A 47 YR OLD FEMALE WITH DX OF MALFUNCTIONING FINE CONTINENT ILEOSTOMY. AWAKE/ALERT. ADM CARE DONE. SEE ADM.ASSESSMENT.
--- NOTE | 2018-04-09 09:40 | NUR ---
NURSE NOTES: MCDONALD BCIR CATHETER TO DRAINAGE BAG, FLUSHED WITH 20CC NS DRAINED BROWNISH OUTPUT
[2018-04-09] MEDS ORDERED: Lidocaine 1% Plain 30 ml INJ PRN (10:30)
[2018-04-09] MEDS ORDERED: Zolpidem 5mg tab ORAL PRN (10:30)
[2018-04-09] MEDS ORDERED: Heparin 2000 units/Ns 1000ml INJ PRN (10:30)
[2018-04-09 11:34] LABS: BASOPHILS % (AUTO) 1.3 % (0.0-2.0); EOSINOPHILS % (AUTO) 1.1 % (0.0-3.0); HEMATOCRIT 42.6 % (37.0-47.0); HEMOGLOBIN 13.7 G/DL (12.0-16.0); LYMPHOCYTES % (AUTO) 33.7 % (20.0-45.0); MEAN CORPUSCULAR VOLUME 86 FL (80-99); MONOCYTES % (AUTO) 4.2 % (1.0-10.0); NEUTROPHILS % (AUTO) 59.6 % (45.0-75.0); PLATELET COUNT 300 K/UL (150-450); RED BLOOD COUNT 4.95 M/UL (4.20-5.40); WHITE BLOOD COUNT 7.1 K/UL (4.8-10.8)
[2018-04-09 11:37] LABS: ANION GAP 13 mmol/L (5-15); BLOOD UREA NITROGEN 6 mg/dL (7-18); CALCIUM 9.4 MG/DL (8.5-10.1); CARBON DIOXIDE 25 MMOL/L (21-32); CHLORIDE 102 MMOL/L (98-107); CREATININE 0.8 MG/DL (0.55-1.30); POTASSIUM 3.4 MMOL/L (3.5-5.1); SODIUM 140 MMOL/L (136-145)
[2018-04-09 11:43] LABS: ALANINE AMINOTRANSFERASE 34 U/L (12-78); ALBUMIN/GLOBULIN RATIO 0.9 (1.0-2.7); ALKALINE PHOSPHATASE 126 U/L (46-116); ASPARTATE AMINO TRANSFERASE 25 U/L (15-37); BILIRUBIN,TOTAL 0.5 MG/DL (0.2-1.0)
[2018-04-09] MEDS: Neomycin Sulfate 500mg Tab ORAL SCH ×3 (11:54→20:35)
[2018-04-09 12:00] VITALS: BP 102/66
[2018-04-09] MEDS: ESTRADIOL 2 MG ORAL SCH (12:27)
--- NOTE | 2018-04-09 13:18 | NUR ---
RADIOLOGY DEPT CHEST X-RAY DONE.-P.DYE
[2018-04-09 14:01] LABS: APPEARANCE,URINE CLEAR; BILIRUBIN, URINE NEGATIVE (NEGATIVE); COLOR,URINE PALE YELLOW; GLUCOSE, URINE (UA) NEGATIVE (NEGATIVE); KETONES,URINE 3+ (NEGATIVE); LEUKOCYTE ESTERASE ,URINE NEGATIVE (NEGATIVE); NITRITE,URINE NEGATIVE (NEGATIVE); PH,URINE 5 (4.5-8.0); PROTEIN,URINE NEGATIVE (NEGATIVE); UROBILINOGEN,URINE NORMAL MG/DL (0.0-1.0)
--- NOTE | 2018-04-09 14:23 | Anethesia Preoperative Eval ---
Anesthesia Pre-op PMH/ROS General Date of Evaluation: Apr 09, 2018 Anesthesiologist: Jair ASA Score: ASA 3 Mallampati Score Class I : Soft palate, uvula, fauces, pillars visible Class II: Soft palate, uvula, fauces visible Class III: Soft palate, base of uvula visible Class IV: Only hard plate visible Mallampati Classification: Class II Surgeon: Dg Diagnosis: Malfunctioning williamson pouch Surgical Procedure: Laparotomy, revision williamson pouch Anesthesia History: PONV Family History: no anesthesia problems Allergies: Coded Allergies: HYDROMORPHONE (Verified Allergy, Severe, Shortness of Breath, 12/09/17) MEPERIDINE (Verified Allergy, Severe, Hives, 12/09/17) Medications: see eMAR Patient NPO?: Yes NPO Date: Apr 09, 2018 Past Medical History Cardiovascular: Denies: HTN, CAD, [place], valve dz, arrhythmia, other Pulmonary: Denies: asthma, COPD, KENDRA, other Gastrointestinal/Genitourinary: Reports: other - h/o cervical cancer; Denies: GERD, CRI, ESRD Neurologic/Psychiatric: Denies: dementia, CVA, depression/anxiety, TIA, other Endocrine: Denies: DM, hypothyroidism, steroids, other HEENT: Denies: cataract (L), cataract (R), glaucoma, THREE AFFILIATED (L), THREE AFFILIATED (R), other Hematology/Immune: Reports: other - SLE; Denies: anemia, DVT, bleeding disorder Musculoskeletal/Integumentary: Reports: other - fibromyalgia; Denies: OA, RA, DJD, DDD, edema PSxH Narrative: multiple laparotomies, MESHA/BSO, shoulder sx Anesthesia Pre-op Phys. Exam Physician Exam Last Vital Signs Date Time Temp Pulse Resp B/P (MAP) Pulse Ox O2 Delivery O2 Flow Rate FiO2 04/09/18 12:00 97.9 73 18 102/66 (78) 99 04/09/18 09:30 Room Air Constitutional: NAD Cardiovascular: RRR Respiratory: CTA Airway Exam Mallampati Score: Class II MO: full ROM: full Teeth: intact Anesthesia Pre-op A/P Labs Hematology Test 04/09/18 11:20 White Blood Count 7.1 K/UL (4.8-10.8) Red Blood Count 4.95 M/UL (4.20-5.40) Hemoglobin 13.7 G/DL (12.0-16.0) Hematocrit 42.6 % (37.0-47.0) Mean Corpuscular Volume 86 FL (80-99) Mean Corpuscular Hemoglobin 27.6 PG (27.0-31.0) Mean Corpuscular Hemoglobin Concent 32.1 G/DL (32.0-36.0) Red Cell Distribution Width 13.0 % (11.6-14.8) Platelet Count 300 K/UL (150-450) Mean Platelet Volume 7.6 FL (6.5-10.1) Neutrophils (%) (Auto) 59.6 % (45.0-75.0) Lymphocytes (%) (Auto) 33.7 % (20.0-45.0) Monocytes (%) (Auto) 4.2 % (1.0-10.0) Eosinophils (%) (Auto) 1.1 % (0.0-3.0) Basophils (%) (Auto) 1.3 % (0.0-2.0) Coagulation Test 04/09/18 11:20 Prothrombin Time 10.2 SEC (9.30-11.50) Prothromb Time International Ratio 1.0 (0.9-1.1) Activated Partial Thromboplast Time 27 SEC (23-33) Chemistry Test 04/09/18 11:20 Sodium Level 140 MMOL/L (136-145) Potassium Level 3.4 MMOL/L (3.5-5.1) L Chloride Level 102 MMOL/L (98-107) Carbon Dioxide Level 25 MMOL/L (21-32) Anion Gap 13 mmol/L (5-15) Blood Urea Nitrogen 6 mg/dL (7-18) L Creatinine 0.8 MG/DL (0.55-1.30) Estimat Glomerular Filtration Rate > 60 mL/min (>60) Glucose Level 82 MG/DL (74-106) Calcium Level 9.4 MG/DL (8.5-10.1) Total Bilirubin 0.5 MG/DL (0.2-1.0) Aspartate Amino Transf (AST/SGOT) 25 U/L (15-37) Alanine Aminotransferase (ALT/SGPT) 34 U/L (12-78) Alkaline Phosphatase 126 U/L (46-116) H Total Protein 8.4 G/DL (6.4-8.2) H Albumin 4.0 G/DL (3.4-5.0) Globulin 4.4 g/dL Albumin/Globulin Ratio 0.9 (1.0-2.7) L Studies Pre-op Studies: EKG - sr Risk Assessment & Plan Assessment: ASA III Plan: GA Status Change Before Surgery: No Pre-Antibiotics Drug: Batsheva Gilman MD Apr 09, 2018 14:23
--- NOTE | 2018-04-09 15:33 | Diagnostic Imaging Report ---
Indications: Needs long-term IV access Technique: Ultrasound confirms patent compressible left basilic vein. Total sterile technique, including sterile probe cover and sterile gel, hat, mask, sterile gown, large sterile drape, and preparation with 2% chlorhexidine utilized. Local anesthesia with 1% lidocaine. Under real-time ultrasound guidance, puncture basilic vein using 21-gauge needle, documented and archived, passage 0.018 guidewire under direct fluoroscopy, which was used to determine appropriate catheter length, exchange for 5 [place] peel-away sheath. 5 [place] Bard dual-lumen power PICC cut to 39 cm. It was inserted through the peel-away sheath. Peel-away sheath and guidewire removed. Catheter fixed to the skin. Both catheter ports aspirated and flushed. Patient tolerated procedure well, without immediate complication. Digital radiograph documents satisfactory catheter tip position, at the cavoatrial junction. Total fluoroscopy time 13.5 seconds . Total dose area product 0.81 mGy Total number of images: 1 Impression: Successful placement of left arm PICC under sonographic and fluoroscopic guidance, as described above.
--- NOTE | 2018-04-09 15:58 | Diagnostic Imaging Report ---
Indication: Cough Technique: One view of the chest Comparison: 12/09/2017 Findings: Lungs and pleural spaces are clear. Heart size is normal. Previously demonstrated PICC is no longer evident Impression: No acute process
[2018-04-09 16:00] VITALS: BP 121/73
--- NOTE | 2018-04-09 16:09 | General Progress Note ---
Progress Note Progress Note H&P dictated. Patient with difficulty intubating her Sheppard continent ileostomy pouch and incontinence. Abdomen soft, catheter in place to drainage with some stool around it Plan: Sheppard pouch endoscopy in AM followed by laparotomy revision Sheppard Pouch Full discussion with patient. Labs satisfactory PIC in place Tyrone Conte MD Apr 09, 2018 16:09
[2018-04-09] MEDS: D5 1/2NS w/KCl 20mEq 1,000 ML IV SCH (17:49)
--- NOTE | 2018-04-09 19:00 | NUR ---
NURSE NOTES: PT IN NO APPARENT DISTRESS. CONDITION STABLE.
--- NOTE | 2018-04-09 19:19 | NUR ---
HAND-OFF: Report given to Jemrain RICHARDSON RN.
--- NOTE | 2018-04-09 19:45 | NUR ---
NURSE NOTES: Received report from KRZYSZTOF To. Received pt in bed, AOx4, denies pain, no distress noted. PICC line patent and intact. IV fluid infusing as ordered. Ileo to drainage bag. Bed in lowest position and locked, side rails up x 2, call light within reach. will continue to monitor.
[2018-04-09 20:00] VITALS: BP 107/68
[2018-04-09] MEDS: Dyna-Hex 2% Top Sol 2oz TOPIC SCH (20:36)
[2018-04-10] VITALS (17 sets, daily range): BP systolic 100–129; BP diastolic 59–88
[2018-04-10] MEDS: Ampicillin/Sulbactam Sod 3 GM in NS 110 ML IVPB SCH ×4 (00:59→18:32)
[2018-04-10] MEDS: D5 1/2NS w/KCl 20mEq 1,000 ML IV SCH ×2 (04:00→14:00)
--- NOTE | 2018-04-10 07:27 | NUR ---
HAND-OFF: Report given to KRZYSZTOF Ulloa. Pt in stable condition.
--- NOTE | 2018-04-10 07:30 | Pre-Procedure Note/Attestation ---
Pre-Procedure Note/Attestation Complete Prior to Procedure Planned Procedure: not applicable Procedure Narrative: Sheppard continent ileostomy pouch endoscopy Indications for Procedure Pre-Operative Diagnosis: malfunctioning Sheppard continent ileostomy Attestation I attest that I discussed the nature of the procedure; its benefits; risks and complications; and alternatives (and the risks and benefits of such alternatives ), prior to the procedure, with the patient (or the patient's legal industrial sales representative). I attest that, if there was a reasonable possibility of needing a blood transfusion, the patient (or the patient's legal industrial sales representative) was given the [facility] standardized written summary, pursuant to the Adelso Manley Blood Safety Act ([place] Health and Safety Code # 1645, as amended). I attest that I re-evaluated the patient just prior to the surgery and that there has been no change in the patient's H&P, except as documented below: none Tyrone Conte MD Apr 10, 2018 07:30
--- NOTE | 2018-04-10 07:37 | NUR ---
NURSE NOTES: Pt picked up and taken down to GI lab procedure. Will endorse to next nurse.
--- NOTE | 2018-04-10 07:40 | NUR ---
NURSE NOTES: Report received from outgoing RN , Edis Shah RN. Patient sent down to [facility] Pouch Endoscopy via [facility] at 0735 in stable condition. Will assess patient when returns to room.
--- NOTE | 2018-04-10 08:16 | Brief Operative Note ---
Immediate Post Operative Note Operative Note Pre-op Diagnosis: malfunctioning Sheppard continent ileostomy Procedure: Sheppard pouch endoscopy Post-op Diagnosis: partially slipped valve Post-op Diagnosis: same as pre-op Surgeon: ciro Anesthesiologist: dolly Anesthesia: other - none Specimen: none Complications: none Condition: stable Fluids: none Estimated Blood Loss: none Drains: other - 28 morrell to Sheppard pouch Implant(s) used?: No Tyrone Conte MD Apr 10, 2018 08:16
[2018-04-10] MEDS: ESTRADIOL 2 MG ORAL SCH (08:55)
--- NOTE | 2018-04-10 09:00 | NUR ---
NURSE NOTES: Spoke with Dr. Conte at 0815, instructed to reconnect IV, patient to ambulate in halls and no further changes s/p [facility] Pouch Endoscopy. Patient returned from GI lab at 08, via gurney in stable condition. Left PICC line flushed without difficulty, dressing clean/dry/intact, site asymptomatic, IV reconnected as ordered, D5.45 NS with 20 KCL at 100 ml/hr. Right ileostomy dressing cleannPatient reinforced with NPO status, patient verbalized understanding. Patient ambulating in halls with IV/Ileostomy.
--- NOTE | 2018-04-10 09:45 | NUR ---
NURSE NOTES: Patient denies SOB/NV/pain. Right ileostomy dressing clean/dry/intact. Ileostomy draining, green output to gravity, flushed as ordered, air bubbles noted to ileostomy tubing. Patient voids in bathroom. Call light in reach, bed in lowest position, mother in law at bedside, will continue to monitor.
[2018-04-10] MEDS ORDERED: TransDerm Scop 1mg/72HR Patch TDERMAL SCH (10:00)
--- NOTE | 2018-04-10 10:15 | Pre-op HX & Phy Repo 2 SIG ---
DATE OF ADMISSION: 04/09/2018 [place] Please see previously dictated history and physical examination. PHYSICAL EXAMINATION: GENERAL: She is well developed, well nourished, in no distress. VITAL SIGNS: She is 5 feet 1 inch and approximately 120 pounds. HEENT: Within normal limits. LUNGS: Clear. HEART: Regular rhythm. BREASTS: Without masses. ABDOMEN: Soft and not distended. There is a long midline incision and a transverse scar in the right side of the abdomen. The stoma of the Sheppard pouch is low in the right lower quadrant and well healed. There is no evidence of abdominal wall hernia. PELVIC: Per primary care recently. RECTAL: Per primary care recently. EXTREMITIES: Without edema. NEUROLOGIC: Physiologic. IMPRESSION: 1. Malfunctioning Sheppard continent ileostomy with partial valve desussception 2. History of colonic inertia and pelvic floor dysfunction. 3. History of lupus. 4. History of fibromyalgia. 5. History of shoulder surgery. 6. STATUS POST MULTIPLE ABDOMINAL OPERATIONS: 6.1. Total abdominal hysterectomy and bilateral salpingo-oophorectomy 1997 6.2. Subtotal colectomy with ileosigmoidostomy in 2013. 6.3. Resection of the ileosigmoidostomy due to volvulus and anastomosis leak with conversion to ileorectostomy and temporary loop ileostomy October 2015 6.4. Closure of loop ileostomy in January 2016. 6.5. Excision of right lower quadrant abscess tract of abdominal wall June 2016 (all [place] state). 6.6. Takedown of ileorectostomy with creation of Sheppard continent ileostomy on December 10, 2017. PLAN: The patient will be admitted and undergo insertion of a dual-lumen PICC line for intravenous hydration during bowel preparation for surgery. Her pouch catheter will be maintained to continuous gravity drainage. I have had a full discussion regarding the nature of her condition, the nature of the surgery, indications, alternatives, options, and risks including bleeding, infection, injury to adjacent structures or organs, adhesions that could lead to bowel obstruction, recurrent difficulties with the pouch function or structure that could require additional procedures, deep vein thrombosis despite prophylaxis, etc. All questions have been answered. The patient understands and agrees to proceed. Tyrone Conte M.D. DR: Adriana JOB#: [id number] CC: LAM
--- NOTE | 2018-04-10 10:30 | NUR ---
HAND-OFF: Report given to Shantell Landeros RN.
--- NOTE | 2018-04-10 10:30 | NUR ---
NURSE NOTES: Received report from KRZYSZTOF Ulloa. Rounding done. Patient a/o x4 lying on the bed. Denies any pain at this time. No respiratory discomfort noted. Abdominal dressing site is dry and intact. Bed in lowest position, call light within reach. Will continue to monitor.
[2018-04-10] MEDS ORDERED: Bacitracin 50000 Units Vial ONE ×2 (10:50→12:59)
[2018-04-10] MEDS ORDERED: NeoSporin Gu Irrig 1ml Amp IRRIG ONE ×2 (10:50→12:59)
--- NOTE | 2018-04-10 10:50 | Pre-Procedure Note/Attestation ---
Pre-Procedure Note/Attestation Complete Prior to Procedure Planned Procedure: not applicable Procedure Narrative: laparotomy with revision of Sheppard Continent Ileostomy, possible gastrostomy Indications for Procedure Pre-Operative Diagnosis: malfunctioning Sheppard continent ileostomy with partially slipped valve Attestation I attest that I discussed the nature of the procedure; its benefits; risks and complications; and alternatives (and the risks and benefits of such alternatives ), prior to the procedure, with the patient (or the patient's legal outside sales representative insurance). I attest that, if there was a reasonable possibility of needing a blood transfusion, the patient (or the patient's legal outside sales representative insurance) was given the [place] [facility] standardized written summary, pursuant to the Adelso Mccook Blood Safety Act ([place] Health and Safety Code # 1645, as amended). I attest that I re-evaluated the patient just prior to the surgery and that there has been no change in the patient's H&P, except as documented below:none Tyrone Conte MD Apr 10, 2018 10:50
[2018-04-10] MEDS ORDERED: Heparin 5000 units/ml inj SUBQ SCH (11:00)
--- NOTE | 2018-04-10 11:00 | NUR ---
NURSE NOTES: Spoke with BRAD in Pharmacy regarding dose for Scopolamine Patch dose 1 mg, but package says 1.5 mg, was instructed that it was the same and can administer. Pre-op checklist completed. Spoke with Vivian in OR to update regarding Scopolamine Patch applied to behind right ear, emergency contact information (mother in law Amber Lee [phone]) and that patient is wearing a medical bracelet to her right wrist.
[2018-04-10] MEDS ORDERED: Ampicillin/Sulbactam Sod 3 GM in NS 110 ML IV SCH (12:00)
[2018-04-10] MEDS ORDERED: Midazolam 2mg/2ml Inj ONE (12:18)
[2018-04-10] MEDS ORDERED: fentaNYL 100 mcg/2 mL IV ONE (12:18)
[2018-04-10] MEDS ORDERED: Lidocaine 1% MPF 10mg/ml 5ml ONE (12:24)
[2018-04-10] MEDS ORDERED: Propofol 200mg/20ml IV ONE (12:24)
--- NOTE | 2018-04-10 12:24 | NUR ---
NURSE NOTES: Patient off the unit for surgery in stable condition.
[2018-04-10] MEDS ORDERED: Succinylcholine 20mg/ml 10ml vial ONE (13:27)
[2018-04-10] MEDS ORDERED: Zemuron 50mg/5ml Inj IV ONE (13:27)
[2018-04-10] MEDS ORDERED: Sterile Water Irrig 1000ml IRRIG ONE (13:40)
[2018-04-10] MEDS ORDERED: Neostigmine 1mg/ml 10ml Inj ONE (13:40)
[2018-04-10] MEDS ORDERED: LR 1000ml ONE (13:40)
[2018-04-10] MEDS ORDERED: NS Irrig 4000ml IRRIG ONE (13:40)
[2018-04-10] MEDS ORDERED: Sterile Water For Irrig 2000ml IRRIG ONE (14:00)
[2018-04-10] MEDS ORDERED: Morphine Sulfate 10mg/ml Inj ONE (14:25)
[2018-04-10] MEDS ORDERED: Glycopyrrolate 0.2mg/ml 1ml Vial ONE (14:27)
[2018-04-10] MEDS ORDERED: Sodium Chloride 10ml vial INJ ONE (14:27)
[2018-04-10] MEDS ORDERED: LR 1000ml 1,000 ML IVLG SCH (14:41)
[2018-04-10] MEDS ORDERED: Metoclopramide 10mg/2ml Inj IVP PRN (14:45)
[2018-04-10] MEDS ORDERED: DiphenhydrAMINE 50mg/ml Inj IVP PRN (14:45)
[2018-04-10] MEDS ORDERED: Ketorolac 30mg Inj IV PRN (14:45)
[2018-04-10] MEDS ORDERED: Acetaminophen (Non formulary) 100 ML IV ONE (14:45)
[2018-04-10] MEDS ORDERED: Midazolam 2mg/2ml Inj IVP PRN (14:45)
--- NOTE | 2018-04-10 15:15 | Procedure Note ---
ENDOSCOPY PROCEDURE REPORT DATE OF PROCEDURE: April 10, 2018 ENDOSCOPIST: Tyrone Conte M.D. ANESTHESIA: None. SEDATION: None. PRE-ENDOSCOPY DIAGNOSES: 1. Malfunctioning Sheppard continent ileostomy with difficulty with intubation and incontinence. 2. History of colonic inertia and pelvic floor dysfunction. 3. Status post multiple abdominal operations including total colectomy and Sheppard continent ileostomy. POST-ENDOSCOPY DIAGNOSES: 1. Malfunctioning Sheppard continent ileostomy with difficulty with intubation and incontinence. 2. History of colonic inertia and pelvic floor dysfunction. 3. Status post multiple abdominal operations including total colectomy and Sheppard continent ileostomy. ENDOSCOPY PERFORMED: Sheppard continent ileostomy, pouch endoscopy. FINDINGS: A partially slipped nipple valve. PROCEDURE: The patient was positioned supine in the GI lab without any sedation or anesthesia given or required. First I irrigated her indwelling 28-Stateless Block and then removed it. Using a GIF-P140 endoscope with slight manipulation the pouch was entered with the distance to the tip of the valve 9 to 10 cm. There was evidence of redundant mucosal folds in the distal several centimeters. The pouch was distensible and the mucosa appeared completely normal. Retroflexed views revealed a partially slipped nipple valve. Withdrawal views confirmed the above findings. After removing the endoscope, I was able to readily insert a 28-Stateless Block catheter into the pouch and reconnected it to continuous gravity drainage. The patient will require surgical revision of her Sheppard pouch. She tolerated the endoscopy well. Tyrone Conte M.D. DR: Mitali JOB#: [id number] CC: LAM
[2018-04-10] MEDS ORDERED: NS Irrig 1000ml ONE (15:32)
[2018-04-10] MEDS ORDERED: NS 275ml ONE (15:32)
[2018-04-10] MEDS ORDERED: PCA Morphine 1mg/ml 30 ML IV ONE (16:53)
--- NOTE | 2018-04-10 16:53 | Brief Operative Note ---
Immediate Post Operative Note Operative Note Pre-op Diagnosis: malfunctioning Sheppard continent ileostomy with partially slipped valve Procedure: revision of Sheppard continent ileostomy Post-op Diagnosis: partially slipped valve Post-op Diagnosis: same as pre-op Findings: consistent w/pre-op dx studies Surgeon: ciro Stripper Color: claudia Anesthesiologist: kenton Anesthesia: general Specimen: none Complications: none Condition: stable Fluids: see anesthesia record Estimated Blood Loss: volume Drains: other - 28 Block to Sheppard pouch; 18Fr gastrostomy Implant(s) used?: Tyrone Duncan MD Apr 10, 2018 16:53
--- NOTE | 2018-04-10 16:57 | Immediate Post-Op Evaluation ---
Immediate Post-Op Evalulation Immediate Post-Op Evalulation Procedure: Exploratory laparotomy revision of continent pouch Date of Evaluation: Apr 10, 2018 Time of Evaluation: 16:55 IV Fluids: 1200 Blood Products: none Estimated Blood Loss: 100 Urinary Output: 150 Blood Pressure Systolic: 118 Blood Pressure Diastolic: 64 Pulse Rate: 78 Respiratory Rate: 20 O2 Sat by Pulse Oximetry: 98 Temperature (Fahrenheit): 98.1 Pain Score (1-10): 2 Nausea: No Vomiting: No Complications none Patient Status: reacts, patent, extubated, none Hydration Status: adequate Reggie Maya MD Apr 10, 2018 16:57
[2018-04-10] MEDS ORDERED: Morphine Sulfate 2mg/ml Inj(IV/IM USE ONLY) IVP PRN (17:00)
[2018-04-10] MEDS ORDERED: Morphine Sulfate 4mg/ml Inj (IV USE ONLY) IV PRN (17:00)
[2018-04-10] MEDS ORDERED: Naloxone 0.4mg/ml Inj IVP PRN (17:00)
[2018-04-10] MEDS ORDERED: PCA Education Pamphlet MISC ONE (17:00)
[2018-04-10] MEDS ORDERED: Acetaminophen 650mg/20.3ml GT PRN (17:00)
[2018-04-10] MEDS ORDERED: LORazepam 1mg tab SL PRN ×2 (17:00)
[2018-04-10] MEDS ORDERED: Rate Change PCA 1 Each MISC PRN (17:00)
[2018-04-10] MEDS: fentaNYL 100 mcg/2 mL IV PRN ×4 (17:08→18:59)
[2018-04-10] MEDS: PCA Morphine 1mg/ml 30 ML IV PRN ×2 (17:26→18:59)
--- NOTE | 2018-04-10 18:10 | NUR ---
NURSE NOTES: Received patient from Kaylynn, RN ANESTHETIST. Patient asleep. c/o pain 6/10 on abdominal surgical site and PLANT SCIENCES PROFESSOR instruction was given as ordered. Surgical abdominal site is dry and intact. Patient have gastrostomy drain tube and ileostomy drain tub. It is patent. Block catheter is patent and yellowish. Will check v/s frequently. Bed in lowest position, call light within reach. Will continue to monitor.
[2018-04-10] MEDS: D5 1/4NS w/KCl 20mEq 1,000 ML IV SCH (18:32)
[2018-04-10] MEDS: PCA shift volume MISC SCH (19:00)
--- NOTE | 2018-04-10 19:00 | Operative Note - Dictated ---
DATE OF OPERATION: 04/10/2018 SURGEON: Tyrone Conte M.D. PASTORAL MINISTRIES PROFESSOR SURGEON: Balwinder Patrick M.D. ANESTHESIOLOGIST: Reggie Maya M.D. TYPE OF ANESTHESIA: General endotracheal. PREOPERATIVE DIAGNOSES: 1. Malfunctioning of Sheppard continent ileostomy with partially slipped valve 2. History of colonic inertia and pelvic floor dysfunction. 3. Status post multiple abdominal operations. 3.1. Total abdominal hysterectomy and bilateral salpingo-oophorectomy 1997 3.2. Subtotal colectomy with ileosigmoidostomy in 2013. 3.3. Resection of the ileosigmoidostomy due to volvulus and anastomosis leak with conversion to ileorectostomy with temporary loop ileostomy in October 2015. 3.4. Closure of loop ileostomy in January 2016. 3.5. Excision of right lower quadrant abscess tract of abdominal wall June 2016 (all of these operations were performed elsewhere) 3.6. Takedown of ileorectostomy with creation of Sheppard continent ileostomy in 12/10/2017. POSTOPERATIVE DIAGNOSES: 1. Malfunctioning of Sheppard continent ileostomy with partially slipped valve 2. History of colonic inertia and pelvic floor dysfunction. 3. Status post multiple abdominal operations. 3.1. Total abdominal hysterectomy and bilateral salpingo-oophorectomy 1997 3.2. Subtotal colectomy with ileosigmoidostomy in 2013. 3.3. Resection of the ileosigmoidostomy due to volvulus and anastomosis leak with conversion to ileorectostomy with temporary loop ileostomy in October 2015. 3.4. Closure of loop ileostomy in January 2016. 3.5. Excision of right lower quadrant abscess tract of abdominal wall June 2016 3.6. Takedown of ileorectostomy with creation of Sheppard continent ileostomy in 12/10/2017. OPERATION PERFORMED: Laparotomy with revision of Sheppard continent ileostomy valve and catheter gastrostomy. DESCRIPTION OF PROCEDURE: The patient was taken to the operating room and under general anesthesia with sequential compression device stockings in place and Block catheter in place and having received intravenous antibiotics, the patient was prepped and draped in usual fashion. Previous midline incision was reopened from above the umbilicus to the pubis, ultimately extended into the epigastrium because of severe diffuse adhesions. Adhesions were taken down throughout the abdominal cavity. A 28-Block was placed through the stoma in the right lower quadrant into the pouch to help facilitate dissection. The pouch was markedly adherent to the bladder and into the pelvis. The bladder and ureters were protected and the pouch finally mobilized and the old pouch suture line was identified. A 28-Block was placed into the pouch and the afferent bowel manually occluded. The pouch was distended with 300 mL of saline and there was gross incontinence when the catheter was removed. The catheter was reintroduced and the pouch decompressed. Between 3-0 silk stay sutures, a pouch enterotomy was created and the nipple valve grasped with [place] clamps. It was reformed to 5.0 cm in length. Two rows of lauren avoiding the mesentery were placed using the PI 55 stapling device with 4.8 mm lauren. Then through a separate small pouch enterotomy, the PI 55 stapler was inserted with the lower blade through the enterotomy and into the lumen of the valve, and then it was fired to staple the valve to the anterior pouch wall. The small enterotomy was closed with continuous full-thickness locking 2-0 chromic followed by imbricating 3-0 silk. The pouch enterotomy was closed with continuous 2-0 chromic full-thickness locking suture followed by imbricating 3-0 silk. The 28-Portuguese Block went readily through the stoma into the pouch. The afferent bowel was occluded and the pouch was distended. There was some incontinence felt to be due to the patulous nature of the nipple valve, which is going to contract spontaneously. The pelvis was irrigated and hemostasis achieved with cautery. The pouch lay nicely back in the pelvis with the 28-Portuguese Block positioned in the apex and sutured to the skin with two sutures of 2-0 silk. The catheter was flushed and connected to a gravity drainage bag. In view of all the adhesions and dissection of bowel loops, I decided to restore the prior gastrostomy. The stomach was still tacked to the anterior abdominal wall from the surgery in November. A stab incision was made and an 18-Portuguese Block brought through the abdominal wall, placed into the stomach between 2-0 chromic pursestring sutures with the balloon inflated and positioned in the fundus and the stomach sutured to the anterior abdominal wall with multiple interrupted 3-0 silk sutures. The catheter was sutured to the skin with 2-0 silk and was flushed and connected to a gravity drainage bag. After ascertaining the hemostasis was secure the midline incision was closed in one layer with continuous looped PDS, starting at both ends. Subcutaneous tissues were irrigated with antibiotic solution and skin was closed with lauren. Dry sterile dressings applied. Final sponge and needle counts were correct. The patient tolerated the procedure well and left the operating room in good condition. Tyrone Conte M.D. DR: FARAZ JOB#: [id number] CC: LAM
--- NOTE | 2018-04-10 19:46 | NUR ---
CASE MANAGEMENT: INITIAL REVIEW 04/09/2018 47 YO F PRESENTED TO [facility] CC: MALFUNCTIONING FINE CONTINENT ILEOSTOMY PMHx: LUPUS. FIBROMYALGIA. SI:MALFUNCTIONING FINE CONTINENT ILEOSTOMY T 97.6 HR 75 RR 18 B/P 120/72 SATS 100% ON RA K 3.4 BUN 6 ALP 126 IS: OR MEDS PATIENT ADMITTED TO MED/SURG 04/09/2018 @ 1055 DCP: PATIENT TO BE DISCHARGED TO HOME ONCE MEDICALLY CLEARED. PLAN OF CARE: Pre-op Diagnosis: malfunctioning Fine continent ileostomy Procedure: Fine pouch endoscopy Post-op Diagnosis: partially slipped valve 04/10/2018 SI:MALFUNCTIONING FINE CONTINENT ILEOSTOMY T 99.3 HR 87 RR 18 B/P 118/71 SATS 99% ON 3L/NC NO LABS TODAY IS: DEXTROSE IV @ 100 mL/HR RESEARCH COMPUTING SPECIALIST PER PARAMETERS FLAGYL IV Q6H UNASYN IV Q6H MED/SURG STATUS DCP: PATIENT TO BE DISCHARGED TO HOME ONCE MEDICALLY CLEARED. Addendum: 04/12/18 at 0826 by Gerri Lombardo CM INTERQUAL MET FOR ACUTE
--- NOTE | 2018-04-10 19:59 | NUR ---
HAND-OFF: Report given to KRZYSZTOF Jiménez. Patient in stable condition.
[2018-04-10] MEDS: Dyna-Hex 2% Top Sol 2oz TOPIC SCH (21:21)
--- NOTE | 2018-04-10 22:07 | NUR ---
NURSE NOTES: Received report from Tigre BLANKENSHIP. Pt A&O x4 , laying semi-fowlers in bed. Pt c/o 07/04 pain, FITTING ROOM SUPERVISOR teaching reinforced. PICC line dry & intact, infusing fluids. Surgical dressing C/D/I. Gastrostomy tube flushed per MD order, draining greenish-brown drainage. Ileostomy tube flushed per MD order, draining serosanguineous drainage. Block patent & draining yellow urine. Call light in reach, bed in lowest position, side rails up x2.
[2018-04-11] VITALS (7 sets, daily range): BP systolic 91–108; BP diastolic 53–66
[2018-04-11] MEDS: Ampicillin/Sulbactam Sod 3 GM in NS 110 ML IVPB SCH ×4 (00:06→18:21)
[2018-04-11] MEDS: PCA Morphine 1mg/ml 30 ML IV PRN (01:36)
--- NOTE | 2018-04-11 01:53 | NUR ---
PNEUMATIC TUBE REPAIRER syringe changed at 0136. 1.7ml Morphine wasted in waste box container. New morphine syringe placed in pump,level reads 29.9 ml.
[2018-04-11] MEDS: D5 1/4NS w/KCl 20mEq 1,000 ML IV SCH ×2 (06:05→18:21)
[2018-04-11] MEDS: DiphenhydrAMINE 50mg/ml Inj IVP PRN ×2 (06:09→13:11)
[2018-04-11] MEDS: PCA shift volume MISC SCH ×2 (07:00→19:00)
[2018-04-11 07:04] LABS: ANION GAP 7 mmol/L (5-15); BLOOD UREA NITROGEN 5 mg/dL (7-18); CALCIUM 7.5 MG/DL (8.5-10.1); CARBON DIOXIDE 26 MMOL/L (21-32); CHLORIDE 106 MMOL/L (98-107); CREATININE 0.7 MG/DL (0.55-1.30); POTASSIUM 3.7 MMOL/L (3.5-5.1); SODIUM 139 MMOL/L (136-145)
--- NOTE | 2018-04-11 07:49 | NUR ---
HAND-OFF: Report given to Laila BLANKENSHIP. Pt is stable.
--- NOTE | 2018-04-11 07:50 | NUR ---
NURSE NOTES: Report received from outgoing RN, rounds made. Patient sitting in semi fowlers position, in bed, on RA, drowsy. No distress/SOB. Encouraged IS use. IVF infusing to left PICC as ordered. Left PICC site with slight pink/redness surrounding insertion site, will show Dr. Conte when at bedside. EVP HEAD OF [employer]ATEGY in place, patient tolerating well. Ileostomy (left side) draining to gravity, green output. New gastrostomy (right side) with blood tinged output (small amount). Will flush every 3 hours as ordered. FC draining/patent to gravity yellow clear urine. Abdominal dressing clean/dry/intact. Bilateral SCDs on. Reinforced NPO status, provided ice chips. Requesting oral mouth care, due to dry mouth, will provide oral swabs and toothbrush/mouthwash for patient. Call light in reach, bed in lowest position. Family at bedside (patient mother in law). Will continue to monitor.
[2018-04-11 07:59] LABS: BASOPHILS % (AUTO) 0.3 % (0.0-2.0); HEMATOCRIT 33.6 % (37.0-47.0); HEMOGLOBIN 10.7 G/DL (12.0-16.0); MEAN CORPUSCULAR VOLUME 87 FL (80-99); MONOCYTES % (AUTO) 5.8 % (1.0-10.0); NEUTROPHILS % (AUTO) 76.9 % (45.0-75.0); PLATELET COUNT 228 K/UL (150-450); RED BLOOD COUNT 3.87 M/UL (4.20-5.40); RED CELL DISTRIBUTION WIDTH 13.2 % (11.6-14.8); WHITE BLOOD COUNT 8.9 K/UL (4.8-10.8)
[2018-04-11] MEDS: ESTRADIOL 2 MG ORAL SCH (09:00)
--- NOTE | 2018-04-11 14:11 | 48 Hour Post Anesthesia Eval ---
Post Anesthesia Evaluation Procedure: Exploratory laparotomy revision of continent pouch Date of Evaluation: Apr 11, 2018 Time of Evaluation: 14:09 Blood Pressure Systolic: 96 0: 48 Pulse Rate: 74 Respiratory Rate: 20 Temperature (Fahrenheit): 97.5 O2 Sat by Pulse Oximetry: 98 Airway: patent Nausea: No Vomiting: No Pain Intensity: 3 Hydration Status: adequate Cardiopulmonary Status: stable Mental Status/LOC: patient returned to baseline Follow-up Care/Observations: n/a Post-Anesthesia Complications: none Follow-up care needed: N/A Reggie Maya MD Apr 11, 2018 14:11
[2018-04-11] MEDS ORDERED: PCA Morphine 1mg/ml 30 ML IV PRN (14:41)
[2018-04-11] MEDS ORDERED: DiphenhydrAMINE 50mg/ml Inj IVP PRN (14:42)
[2018-04-11] MEDS ORDERED: Morphine Sulfate 4mg/ml Inj (IV USE ONLY) IV PRN (14:42)
[2018-04-11] MEDS ORDERED: Naloxone 0.4mg/ml Inj IVP PRN (14:42)
[2018-04-11] MEDS ORDERED: Morphine Sulfate 2mg/ml Inj(IV/IM USE ONLY) IVP PRN (14:42)
[2018-04-11] MEDS ORDERED: Rate Change PCA 1 Each MISC PRN (14:45)
--- NOTE | 2018-04-11 15:00 | NUR ---
NURSE NOTES: Dr. Conte notified of vitals T99.5 HR105 RR18 BP97/66 98%RA and of left PICC surrounding skin site with pink/redness/skin intact.
--- NOTE | 2018-04-11 15:04 | General Progress Note ---
Progress Note Progress Note Afebrile, awake and alert. Tachycardia 108 and slight decrease systolic BP. c/o pain despite morphine TITLE I DIRECTOR with continuous basal infusion Chest decreased expansion, Cor reg rhythm Abdomen mildly distended, soft, incision clean 12 hours overnight: urine 450cc Gastrostomy 70cc bilious BCIR ileo 5cc serosang WBC 8900 Hgb 10.7 (13.7 pre-op) BMP - satisfactory Imp. Ileus Atelectasis Pain Plan: Add Toradol prn severe pain npo continue Block (severe adhesions from Sheppard pouch to bladder were dissectedd) f/u labs Tyrone Conte MD Apr 11, 2018 15:04
--- NOTE | 2018-04-11 18:00 | NUR ---
NURSE NOTES: Patient received from PACU via bed to 315-1 at 1705, stable condition. Kyrgyz speaking, daughter present at bedside as rubber moulding machine operator. O2 3LNC in place, no SOB/respiratory distress noted. IVF infusing to right wrist, as ordered, site asymptomatic. Neuro checks done, CMS+, skin warm, pedal pushes equal/strong, wiggles, denies numbess, mild tingling noted at bases of bilateral feet. SCDs on. Encouraged CDB/ankle ROM. FC in place, patent to gravity. Patient reports no past medical history, no past surgical history, no home medications. Surgical dressing clean/dry/intact, ice pack in place. Patient oriented to room, call light in reach, bed in lowest position, will continue to monitor. Addendum: 04/11/18 at 2205 by Laila Bernal RN Disregard above note, documented on wrong patient
[2018-04-11] MEDS: Ketorolac 30mg Inj IV PRN (18:32)
--- NOTE | 2018-04-11 19:45 | NUR ---
HAND-OFF: Report given to Tino BLANKENSHIP.
[2018-04-11] MEDS: Dyna-Hex 2% Top Sol 2oz TOPIC SCH (21:03)
--- NOTE | 2018-04-11 21:30 | NUR ---
NURSE NOTES: Received report from Laila BLANKENSHIP. Pt A&O x4, no signs of pain or distress. PICC site dry & intact, infusing fluids. Surgical dressing C/D/I. Block patent & draining, yellow urine. Ileostomy flushed per MD order, draining pink-tinged. Gastrostomy flushed per MD order, draining green drainage. IS at bedside. SEXOLOGIST teaching reinforced. Call light in reach, bed in lowest position, side rails up x2. Will continue to monitor.
[2018-04-11] MEDS ORDERED: Sodium Chloride 550 ML IV STA (22:08)
--- NOTE | 2018-04-11 22:50 | NUR ---
NURSE NOTES: Pt b/p 92/53. notified, order carried out. Pt is A&O x4. Denies dizziness or SOB. Denies pain. Will continue to monitor.
[2018-04-12] VITALS: BP 91/63
[2018-04-12] MEDS: Ampicillin/Sulbactam Sod 3 GM in NS 110 ML IVPB SCH ×5 (00:15→23:59)
[2018-04-12 04:00] VITALS: BP 102/63
[2018-04-12 06:07] LABS: BASOPHILS % (AUTO) 0.3 % (0.0-2.0); EOSINOPHILS % (AUTO) 2.6 % (0.0-3.0); HEMATOCRIT 27.9 % (37.0-47.0); LYMPHOCYTES % (AUTO) 12.4 % (20.0-45.0); MEAN CORPUSCULAR VOLUME 87 FL (80-99); MONOCYTES % (AUTO) 6.4 % (1.0-10.0); NEUTROPHILS % (AUTO) 78.2 % (45.0-75.0); PLATELET COUNT 172 K/UL (150-450); RED BLOOD COUNT 3.22 M/UL (4.20-5.40); RED CELL DISTRIBUTION WIDTH 13.3 % (11.6-14.8); WHITE BLOOD COUNT 9.1 K/UL (4.8-10.8)
[2018-04-12] MEDS: D5 1/4NS w/KCl 20mEq 1,000 ML IV SCH ×2 (06:14)
[2018-04-12 06:34] LABS: ALANINE AMINOTRANSFERASE 13 U/L (12-78); ALBUMIN 2.1 G/DL (3.4-5.0); ALBUMIN/GLOBULIN RATIO 0.7 (1.0-2.7); ALKALINE PHOSPHATASE 71 U/L (46-116); ANION GAP 6 mmol/L (5-15); ASPARTATE AMINO TRANSFERASE 11 U/L (15-37); BILIRUBIN,TOTAL 0.2 MG/DL (0.2-1.0); BLOOD UREA NITROGEN 2 mg/dL (7-18); CALCIUM 7.1 MG/DL (8.5-10.1); CARBON DIOXIDE 29 MMOL/L (21-32); CHLORIDE 104 MMOL/L (98-107); CREATININE 0.7 MG/DL (0.55-1.30); PHOSPHORUS 1.9 MG/DL (2.5-4.9); POTASSIUM 3.2 MMOL/L (3.5-5.1); SODIUM 138 MMOL/L (136-145)
[2018-04-12] MEDS: PCA shift volume MISC SCH ×2 (07:00→19:20)
[2018-04-12 07:04] LABS: % IRON SATURATION 7 % (15-50); IRON 15 ug/dL (50-175); TOTAL IRON BINDING CAPACITY 225 ug/dL (250-450)
--- NOTE | 2018-04-12 07:30 | NUR ---
NURSE NOTES: Report received from outgoing RN, rounds made. Patient resting in bed, semi-fowlers position. Vitals stable, on RA. IVF infusing via left PICC line, site with surrounding skin slightly reddened, MD aware. Denies need for pain medication at this time. FC draining well to gravity, yellow clear urine. Gastrostomy/Ileostomy draining well to gravity, green output. Abdominal dressing clean/dry/intact. Bilateral SCDs on. Encouraged IS. Reinforced NPO except ice chips. Call light in reach, bed in lowest position. Will continue to monitor.
--- NOTE | 2018-04-12 07:56 | NUR ---
HAND-OFF: Report given to Laila BLANKENSHIP. Pt is stable.
[2018-04-12 08:00] VITALS: BP 95/64
[2018-04-12] MEDS: ESTRADIOL 2 MG ORAL SCH (09:00)
[2018-04-12] MEDS ORDERED: Rate Change PCA 1 Each MISC PRN (09:45)
--- NOTE | 2018-04-12 09:53 | General Progress Note ---
Progress Note Progress Note Afebrile, comfortable now, tachycardia decreased Abdomen soft, mildly distended, incision clean Urine 1425 Gastrostomy 5 bilious BCIR ileo -60 with enteric fluid this am WBC 9100 Hgb down 9.0 K 3.2 Phos 1.9 Mg 1.3 Albumin 2.1 B12 413 Folic acid 13.7 Imp. Ileus Severe iron deficiency Low Mg, P Plan: Replace Mg, P, KCL Venofer nightly continue Block d/c continuous basal infusion of MS DEBONE SUPERVISOR ambulate BID Tyrone Conte MD Apr 12, 2018 09:53
[2018-04-12] MEDS: Ketorolac 30mg Inj IV PRN ×3 (09:55→22:46)
[2018-04-12] MEDS ORDERED: PCA Morphine 1mg/ml 30 ML IV PRN ×2 (10:00→14:41)
[2018-04-12] MEDS ORDERED: Potassium Phosphate 30 MM in NS 275 ML IV SCH (11:00)
--- NOTE | 2018-04-12 11:47 | NUR ---
CASE MANAGEMENT: REVIEW 04/12/2018 SI:MALFUNCTIONING RODY CONTINENT ILEOSTOMY T 98.6 HR 92 RR 20 B/P 95/64 SATS 99% ON RA K 3.2 BUN 2 GLU 112 CA 7.1 PHOS 1.9 MG 1.3 AST 11 IS: DEXTROSE IV @ 100 mL/HR CUSTOM VAN CONVERTER PER PARAMETERS FLAGYL IV Q6H UNASYN IV Q6H MED/SURG STATUS DCP: PATIENT TO BE DISCHARGED TO HOME ONCE MEDICALLY CLEARED.
[2018-04-12 12:00] VITALS: BP 100/68
[2018-04-12] MEDS: D5 1/2NS w/KCl 40meq 1000ml 1,000 ML IV SCH ×3 (12:51→21:18)
[2018-04-12 16:00] VITALS: BP 100/68
--- NOTE | 2018-04-12 16:21 | Cardiology Report ---
APPROVED REPORT EKG Measurement Heart [id number] Normal sinus rhythm Prolonged QT Abnormal ECG
[2018-04-12] MEDS ORDERED: Tubing IV Secondary IV ONE (16:41)
[2018-04-12] MEDS ORDERED: NS Irrig 1000ml ONE (16:41)
[2018-04-12] MEDS ORDERED: NS 275ml ONE (16:41)
--- NOTE | 2018-04-12 19:15 | NUR ---
HAND-OFF: Report given to Tino BLANKENSHIP.
[2018-04-12 20:00] VITALS: BP 106/72
[2018-04-12] MEDS: Dyna-Hex 2% Top Sol 2oz TOPIC SCH (20:58)
[2018-04-12] MEDS: Iron Sucrose 100 MG in NS 55 ML IV SCH (21:07)
--- NOTE | 2018-04-12 21:31 | NUR ---
NURSE NOTES: Received report from Laila BLANKENSHIP. Pt A&O x4, laying in bed. No signs of pain or distress. Pt on RA w/ IS at bedside. PICC site dry & intact, infusing fluids. Surgical dressing C/D/I. Ileostomy flushed per MD order, draining dark green. Gastrostomy flushed per MD order, draining green. Block patent, draining yellow urine. SCDs on. SOUVENIR AND NOVELTY MAKER teaching reinforced. Call light in reach, bed in lowest position, side rails up x2. Will continue to monitor pt.
[2018-04-13] VITALS: BP 97/55
[2018-04-13 04:00] VITALS: BP 96/55
[2018-04-13] MEDS: Ampicillin/Sulbactam Sod 3 GM in NS 110 ML IVPB SCH ×3 (06:15→17:30)
[2018-04-13] MEDS: D5 1/2NS w/KCl 40meq 1000ml 1,000 ML IV SCH ×3 (06:19→20:02)
[2018-04-13 06:27] LABS: BASOPHILS % (AUTO) 0.6 % (0.0-2.0); EOSINOPHILS % (AUTO) 4.4 % (0.0-3.0); HEMATOCRIT 27.9 % (37.0-47.0); LYMPHOCYTES % (AUTO) 10.8 % (20.0-45.0); MEAN CORPUSCULAR VOLUME 86 FL (80-99); MONOCYTES % (AUTO) 4.4 % (1.0-10.0); NEUTROPHILS % (AUTO) 79.8 % (45.0-75.0); PLATELET COUNT 176 K/UL (150-450); RED BLOOD COUNT 3.26 M/UL (4.20-5.40); RED CELL DISTRIBUTION WIDTH 13.1 % (11.6-14.8); WHITE BLOOD COUNT 7.3 K/UL (4.8-10.8)
[2018-04-13 06:50] LABS: ANION GAP 7 mmol/L (5-15); CALCIUM 7.9 MG/DL (8.5-10.1); CARBON DIOXIDE 24 MMOL/L (21-32); CHLORIDE 108 MMOL/L (98-107); CREATININE 0.5 MG/DL (0.55-1.30); PHOSPHORUS 1.9 MG/DL (2.5-4.9); SODIUM 139 MMOL/L (136-145)
[2018-04-13 06:57] LABS: BLOOD UREA NITROGEN 1 mg/dL (7-18)
[2018-04-13] MEDS: PCA shift volume MISC SCH ×2 (07:00→19:28)
[2018-04-13 08:00] VITALS: BP 116/66
--- NOTE | 2018-04-13 08:10 | NUR ---
HAND-OFF: Report given to Laila BLANKENSHIP. Pt is stable.
--- NOTE | 2018-04-13 08:40 | NUR ---
NURSE NOTES: Report received, rounds made. Patient resting in bed, semi fowlers position, family at bedside. Patient with complains of the chills. Vitals rechecked, T100.4 PR101 RR18 BP 105/64 O2sats on RA 100%. Warm blankets provided. IS x5 done with RN reinforcement, labs reviewed. Will administer Tylenol via GT as ordered. Ileostomy/GT/FC draining to gravity, IVF infusing as ordered via left PICC, site remains unchanged, dressing intact. Abdominal dressing clean/dry/intact. Patient just returned to bed from sitting in chair. Call light in reach, bed in lowest position. Will continue to monitor.
[2018-04-13] MEDS: ESTRADIOL 2 MG ORAL SCH (08:56)
[2018-04-13] MEDS ORDERED: PCA Morphine 1mg/ml 30 ML IV PRN (09:23)
[2018-04-13] MEDS ORDERED: Morphine Sulfate 4mg/ml Inj (IV USE ONLY) IV PRN (09:24)
[2018-04-13] MEDS ORDERED: Rate Change PCA 1 Each MISC PRN (09:24)
--- NOTE | 2018-04-13 09:35 | General Progress Note ---
Progress Note Progress Note T100.2 Tachycardia 100s. c/o nausea despite Zofran and transderm scop. patch. Ambulated Good IS effort - lungs clear Abdomen distended, soft, incision clean Urine 2825 Gastrostomy 190 BCIR ileo 215 WBC 7300 Hgb 9 (stable) BMP ok P low 1.9 Mg 2 Imp. Ileus Atelectasis Plan; continue NPO K2Phos infusion f/u labs Tyrone Conte MD Apr 13, 2018 09:35
[2018-04-13] MEDS: Ketorolac 30mg Inj IV PRN ×2 (09:46→16:50)
[2018-04-13] MEDS ORDERED: Potassium Phosphate 30 MM in NS 275 ML IV ONE (11:00)
[2018-04-13 12:00] VITALS: BP 100/63
[2018-04-13 16:00] VITALS: BP 107/65
--- NOTE | 2018-04-13 19:25 | NUR ---
HAND-OFF: Report given to Tino BLANKENSHIP.
[2018-04-13 20:00] VITALS: BP 102/61
[2018-04-13] MEDS: Dyna-Hex 2% Top Sol 2oz TOPIC SCH (20:01)
[2018-04-13] MEDS: Iron Sucrose 100 MG in NS 55 ML IV SCH (21:06)
--- NOTE | 2018-04-13 21:51 | NUR ---
NURSE NOTES: Received report from Laila BLANKENSHIP. Pt is A&O x4, laying semi-fowlers in bed. No signs of pain or distress. Pt on RA w/ IS at bedside. PICC site dry & intact, infusing fluids. Surgical dressing C/D/I. Ileostomy flushed per MD order, draining green. Gastrostomy flushed per MD order, draining green. Block patent, draining yellow urine. Call light in reach, bed in lowest position, side rails up x2. Will continue to monitor pt.
[2018-04-14] VITALS: BP 97/56
[2018-04-14] MEDS: Ampicillin/Sulbactam Sod 3 GM in NS 110 ML IVPB SCH ×4 (00:08→17:53)
[2018-04-14 04:00] VITALS: BP 95/57
[2018-04-14] MEDS: D5 1/2NS w/KCl 40meq 1000ml 1,000 ML IV SCH ×2 (06:00→07:33)
[2018-04-14] MEDS: Ketorolac 30mg Inj IV PRN ×2 (06:32→16:54)
[2018-04-14 06:47] LABS: ANION GAP 6 mmol/L (5-15); BLOOD UREA NITROGEN 1 mg/dL (7-18); CALCIUM 7.7 MG/DL (8.5-10.1); CARBON DIOXIDE 25 MMOL/L (21-32); CHLORIDE 106 MMOL/L (98-107); CREATININE 0.6 MG/DL (0.55-1.30); POTASSIUM 4.2 MMOL/L (3.5-5.1); SODIUM 137 MMOL/L (136-145)
[2018-04-14] MEDS: PCA shift volume MISC SCH (07:00)
[2018-04-14 07:33] LABS: BASOPHILS % (AUTO) 0.8 % (0.0-2.0); EOSINOPHILS % (AUTO) 5.6 % (0.0-3.0); HEMATOCRIT 27.8 % (37.0-47.0); HEMOGLOBIN 8.7 G/DL (12.0-16.0); LYMPHOCYTES % (AUTO) 17.2 % (20.0-45.0); MEAN CORPUSCULAR VOLUME 87 FL (80-99); NEUTROPHILS % (AUTO) 66.5 % (45.0-75.0); PLATELET COUNT 188 K/UL (150-450); RED BLOOD COUNT 3.22 M/UL (4.20-5.40); RED CELL DISTRIBUTION WIDTH 13.2 % (11.6-14.8); WHITE BLOOD COUNT 5.2 K/UL (4.8-10.8)
--- NOTE | 2018-04-14 07:50 | NUR ---
HAND-OFF: Report given to Radha BLANKENSHIP. Pt is stable.
[2018-04-14 08:00] VITALS: BP 100/59
--- NOTE | 2018-04-14 08:04 | NUR ---
NURSE NOTES: Received report from Tino RN, pt a/a/o seating in chair with no signs of distress however she is complaining of nausea. RN will medicated as indicated by MD orders. GT draining well, total security shift supervisor output: -5ml. Ileo in place draining well, total ileo output:220ml. Block to gravity, total urine output:900ml. PICC line place running D51/2 NS +40mEq@100ml. INVESTMENT PROFESSIONAL with morphine however per report pt is NOT using it for the past 2-3 days. pt ambulating around the unit with steady gait. family at bedside. call light within reach, bed in lowest position, side rales up x2. I will f/u as needed.
[2018-04-14] MEDS: ESTRADIOL 2 MG ORAL SCH (08:43)
--- NOTE | 2018-04-14 08:47 | General Progress Note ---
Progress Note Progress Note T 100.4 . Feeling better. No chest congestion, Minimal nausea. Ambulating in hallways. Using occasional Toradol for pain Abdomen soft, incision clean Urine 1875 Gastrostomy 290 BCIR ileo 515 Hgb 8.7 BUN 1 Cr 0.6 Imp. Resolving ileus Plan: Gastrostomy 3:3 protocol; continue npo d/c RN ORTHOPAEDICS continue Venofer f/u labs Tyrone Conte MD Apr 14, 2018 08:47
[2018-04-14 11:53] LABS: APPEARANCE,URINE CLEAR; BILIRUBIN, URINE NEGATIVE (NEGATIVE); COLOR,URINE PALE YELLOW; GLUCOSE, URINE (UA) NEGATIVE (NEGATIVE); KETONES,URINE 2+ (NEGATIVE); LEUKOCYTE ESTERASE ,URINE 1+ (NEGATIVE); NITRITE,URINE NEGATIVE (NEGATIVE); PH,URINE 7 (4.5-8.0); PROTEIN,URINE NEGATIVE (NEGATIVE); UROBILINOGEN,URINE NORMAL MG/DL (0.0-1.0)
[2018-04-14 12:00] VITALS: BP 91/63
[2018-04-14 16:00] VITALS: BP 96/60
--- NOTE | 2018-04-14 19:21 | NUR ---
HAND-OFF: Report given to Ashley BLANKENSHIP, pt in stable condition. Total I&O's total Ileo: 150-80=70ml total GT: 275-08=889tg total urine: 1175ml
--- NOTE | 2018-04-14 19:30 | NUR ---
NURSE NOTES: Received report & pt from KRZYSZTOF Garcia. Pt lying in bed, a&ox4, in room air, family member at bedside. No s/s of acute distress & no c/o pain at this time. Ileo intact & draining to gravity. Block cath intact & draining yellow urine output to gravity. GT plugged 3:3 protocol; pt tolerating very well. Will unplug @ 2100. Surgical dressing C/D/I. PICC site intact/asymptomatic with IVF running as ordered. Bed in lowest position, call light within reach. Will continue to monitor.
[2018-04-14 20:00] VITALS: BP 90/57
[2018-04-14] MEDS ORDERED: NS 275ml ONE ×2 (20:00→20:19)
[2018-04-14] MEDS: Dyna-Hex 2% Top Sol 2oz TOPIC SCH (20:01)
[2018-04-14] MEDS ORDERED: NS Irrig 1000ml ONE (20:19)
[2018-04-14] MEDS ORDERED: Tubing IV Secondary IV ONE (20:28)
[2018-04-14] MEDS: Iron Sucrose 100 MG in NS 55 ML IV SCH (20:49)
[2018-04-15] VITALS: BP 96/60
[2018-04-15] MEDS: Ampicillin/Sulbactam Sod 3 GM in NS 110 ML IVPB SCH ×2 (00:02→05:25)
[2018-04-15] MEDS: Ketorolac 30mg Inj IV PRN (00:28)
[2018-04-15] MEDS: D5 1/2NS w/KCl 40meq 1000ml 1,000 ML IV SCH ×3 (02:02→21:00)
[2018-04-15 04:00] VITALS: BP 109/63
[2018-04-15 06:14] LABS: BASOPHILS % (AUTO) 1.3 % (0.0-2.0); EOSINOPHILS % (AUTO) 7.8 % (0.0-3.0); HEMATOCRIT 28.1 % (37.0-47.0); LYMPHOCYTES % (AUTO) 30.9 % (20.0-45.0); MEAN CORPUSCULAR VOLUME 86 FL (80-99); MONOCYTES % (AUTO) 13.3 % (1.0-10.0); NEUTROPHILS % (AUTO) 46.7 % (45.0-75.0); PLATELET COUNT 205 K/UL (150-450); RED BLOOD COUNT 3.25 M/UL (4.20-5.40); RED CELL DISTRIBUTION WIDTH 13.5 % (11.6-14.8); WHITE BLOOD COUNT 4.7 K/UL (4.8-10.8)
--- NOTE | 2018-04-15 06:15 | NUR ---
NURSE NOTES: Ambulating in hallway with family member's assistance. Steady gait. No distress noted.
[2018-04-15 06:33] LABS: ANION GAP 8 mmol/L (5-15); BLOOD UREA NITROGEN 1 mg/dL (7-18); CALCIUM 7.9 MG/DL (8.5-10.1); CARBON DIOXIDE 24 MMOL/L (21-32); CHLORIDE 106 MMOL/L (98-107); CREATININE 0.7 MG/DL (0.55-1.30); POTASSIUM 3.7 MMOL/L (3.5-5.1); SODIUM 138 MMOL/L (136-145)
--- NOTE | 2018-04-15 07:28 | NUR ---
HAND-OFF: Report given to KRZYSZTOF Garcia.
--- NOTE | 2018-04-15 07:51 | NUR ---
NURSE NOTES: Received report from Ashley BLANKENSHIP, pt laying in bed a/a/o x4 with no signs of distress or other issues at this time. PICC line intact running IVF: D5 1/2 NS +40 mEq@100ml. NPO except chips and meds. ileo draining well, total output: 70ml. total GT out put: 60ml. Block draining to gravity. total urine:1450ml. call light within reach, bed in lowest position. side rales up x2, pt ambulating around the room with steady gait. family at bedside. I will f/u as needed. - GT will be open at 9:00.
[2018-04-15 08:00] VITALS: BP 115/49
[2018-04-15] MEDS ORDERED: LORazepam 1mg tab SL PRN ×2 (08:30→09:00)
[2018-04-15] MEDS: ESTRADIOL 2 MG ORAL SCH (08:32)
--- NOTE | 2018-04-15 08:33 | General Progress Note ---
Progress Note Progress Note AVSS Feeling better Abdomen soft, healing nicely Urine 2990 Gastrostomy 295 (3:3 protocol) BCIR ileo 140 WBC 4700 Hgb 9 BMP ok U/A neg Imp. Improved Plan; Clear liquid diet Gastrostomy 5:1 protocol D/C urinary Block D/C antibiotics Tyrone Conte MD Apr 15, 2018 08:33
--- NOTE | 2018-04-15 11:18 | NUR ---
RD ASSESSMENT & RECOMMENDATIONS SEE CARE ACTIVITY FOR COMPLETE ASSESSMENT DAILY ESTIMATED NEEDS: Needs based on Surgery 54kg 25-35 kcals/kg 8309-2104 total kcals 1-2 g protein/kg 54-108 g total protein 25-30 mL/kg 4611-3805 total fluid mLs NUTRITION DIAGNOSIS: Altered GI fxn R/T malfunctioning Sheppard continent ileostomy, s/p exploratory laparotomy revision of continent pouch as evidenced by pt diet now advanced to CLD. CURRENT DIET:Now advanced NPO to CLD PO DIET RECOMMENDATIONS: Advance diet as per MD---> BCIR LOW RESIDUE ADDITIONAL RECOMMENDATIONS: 1) Standing wt as able for accurate CBW 2) Ensure CLEAR TID while on CLD 3) Diet advancement as per MD 4) Monitor PO tolerance and acceptance .
[2018-04-15 12:00] VITALS: BP 101/83
[2018-04-15 16:00] VITALS: BP 100/51
--- NOTE | 2018-04-15 19:26 | NUR ---
HAND-OFF: Report given to Edis Shaffer pt in stable condition. Addendum: 04/15/18 at 1929 by Radha Goncalves RN Total I&O's Total ileo: 950-00=185cg total GT: 900-73=139no total urine: 900ml - pt was able to ambulate x3 around the unit with steady gait during my shift. - pt was able to tolerate clear liquid diet with no c/o of n/v nor cramping
--- NOTE | 2018-04-15 19:30 | NUR ---
NURSE NOTES: Received report from KRZYSZTOF Garcia. Received pt in bed, AOX4, denies pain, no distress noted. Ileo to drainage back, G-tube clamped at this time. PICC line patent and intact. IV fluid infusing as ordered. Surgical dressing C/D/I. Bed in lowest position and locked, side rails up x 2, call light within reach. Family at bedside. Will continue to monitor.
[2018-04-15] MEDS: Dyna-Hex 2% Top Sol 2oz TOPIC SCH (19:40)
[2018-04-15 20:00] VITALS: BP 97/56
[2018-04-15] MEDS: Iron Sucrose 100 MG in NS 55 ML IV SCH (21:00)
[2018-04-16] VITALS: BP 97/58
[2018-04-16 06:12] LABS: BASOPHILS % (AUTO) 1.7 % (0.0-2.0); EOSINOPHILS % (AUTO) 6.4 % (0.0-3.0); HEMATOCRIT 28.4 % (37.0-47.0); HEMOGLOBIN 9.2 G/DL (12.0-16.0); LYMPHOCYTES % (AUTO) 33.1 % (20.0-45.0); MEAN CORPUSCULAR VOLUME 85 FL (80-99); MONOCYTES % (AUTO) 9.2 % (1.0-10.0); NEUTROPHILS % (AUTO) 49.6 % (45.0-75.0); PLATELET COUNT 226 K/UL (150-450); RED BLOOD COUNT 3.33 M/UL (4.20-5.40); RED CELL DISTRIBUTION WIDTH 13.2 % (11.6-14.8); WHITE BLOOD COUNT 6.4 K/UL (4.8-10.8)
[2018-04-16 06:26] VITALS: BP 100/61
[2018-04-16 06:40] LABS: ANION GAP 10 mmol/L (5-15); BLOOD UREA NITROGEN 1 mg/dL (7-18); CALCIUM 8.3 MG/DL (8.5-10.1); CARBON DIOXIDE 26 MMOL/L (21-32); CHLORIDE 105 MMOL/L (98-107); CREATININE 0.7 MG/DL (0.55-1.30); POTASSIUM 3.8 MMOL/L (3.5-5.1); SODIUM 141 MMOL/L (136-145)
--- NOTE | 2018-04-16 07:27 | NUR ---
HAND-OFF: Report given to KRZYSZTOF Singh. Pt in stable condition.
--- NOTE | 2018-04-16 07:30 | NUR ---
NURSE NOTES: Patient is in bed awake and able to verbalize needs. Stable with no s/s acute distress. Patient is in good spirits. Denies pain or SOB at this time. Surgical site clean, dry, and intact. Gtube clamped at this time as ordered, patient denies discomfort. Patient is comfortable in bed with call light within reach. Will continue to monitor.
[2018-04-16 08:00] VITALS: BP 106/69
[2018-04-16] MEDS: ESTRADIOL 2 MG ORAL SCH (09:19)
[2018-04-16] MEDS: D5 1/2NS w/KCl 40meq 1000ml 1,000 ML IV SCH (11:18)
[2018-04-16 12:00] VITALS: BP 108/66
--- NOTE | 2018-04-16 12:21 | General Progress Note ---
Progress Note Progress Note AVSS Not needing any analgesics. tolerating clear liquids and gastrostomy 5:1 protocol Abdomen soft, healing nicely Urine 2000 BCIR ileo 1590 Gastrostomy 480 Urine C&S no growth WBC 6400 Hgb up 9.2 BMP-wnl Imp. Improving Plan: Continue clear liquids and supplemental IV fluids Gastrostomy plug continuously Maintain continuous drainage of Shepprad Continent Ileostomy Stool for C. diff toxin Tyrone Conte MD Apr 16, 2018 12:21
--- NOTE | 2018-04-16 12:45 | NUR ---
NURSE NOTES: stool sample sent to lab. Will continue to monitor patient.
[2018-04-16] MEDS: Fluconazole 100mg tab ORAL SCH (13:23)
[2018-04-16 16:00] VITALS: BP 115/72
--- NOTE | 2018-04-16 16:23 | NUR ---
CASE MANAGEMENT:REVIEW 04/16/18 SI: POD #6 S/P REVISION OF FINE CONTINENT ILEOSTOMY 98.3 76 18 115/72 97% ON RA H/H-9.2/28.4 CALCIUM-8.3 IS:DIFLUCAN PO QD IVF@75/HR IV TORADOL Q6HRS PRN IV VENOFER : MED/SURG STATUS 3 EAST PLAN: START BCIR LOW RESIDUE DIET GASTROSTOMY PLUG CONTINUOUSLY CONTINUOUS DRAINAGE OF FINE CONTINENT ILEOSTOMY STOOL FOR C-DIFF
--- NOTE | 2018-04-16 19:40 | NUR ---
NURSE NOTES: Report taken from KRZYSZTOF Singh. patients mother at bedside. Patient is awake and in bed, A&Ox4. No signs of distress on room air. Surgical site c/d/i. Gtube clamped. Ileo c/d/i, patent and flowing dark green liquid. Day nurse endorsed that stool sample was sent to lab during previous shift. PICC line site c/d/i, both ports patent. Meal was advanced to BCIR tonight for dinner, ate 100% of meal. Stated that she had no problems post meal 1hr. Continue to monitor output from ileo. Bed in lowest position, call light within reach.
--- NOTE | 2018-04-16 19:54 | NUR ---
HAND-OFF: Report given to Mata BLANKENSHIP. Patient is stable.
[2018-04-16 20:00] VITALS: BP 116/68
[2018-04-16] MEDS: Dyna-Hex 2% Top Sol 2oz TOPIC SCH (20:00)
[2018-04-16] MEDS: Iron Sucrose 100 MG in NS 55 ML IV SCH (21:11)
--- NOTE | 2018-04-16 22:10 | NUR ---
NURSE NOTES: MD was notified of mistake to the diet change 04/16 for dinner. Patient was not supposed to have BCIR diet change until 04/17 AM. I reported to MD that she tolerated the meal well.
[2018-04-17] MEDS: D5 1/2NS w/KCl 40meq 1000ml 1,000 ML IV SCH
[2018-04-17 04:00] VITALS: BP 103/57
--- NOTE | 2018-04-17 05:46 | NUR ---
NURSE NOTES: Patient dressing hand some minimal discharge. RN changed dressing, 4x4/ABD/Papertape. Notified MD.
[2018-04-17 05:51] LABS: EOSINOPHILS % (AUTO) 7.1 % (0.0-3.0); HEMATOCRIT 29.6 % (37.0-47.0); HEMOGLOBIN 9.6 G/DL (12.0-16.0); LYMPHOCYTES % (AUTO) 27.3 % (20.0-45.0); MEAN CORPUSCULAR VOLUME 87 FL (80-99); MONOCYTES % (AUTO) 7.6 % (1.0-10.0); NEUTROPHILS % (AUTO) 56.9 % (45.0-75.0); PLATELET COUNT 236 K/UL (150-450); RED BLOOD COUNT 3.42 M/UL (4.20-5.40); RED CELL DISTRIBUTION WIDTH 13.6 % (11.6-14.8); WHITE BLOOD COUNT 7.5 K/UL (4.8-10.8)
[2018-04-17 06:43] LABS: ANION GAP 10 mmol/L (5-15); BLOOD UREA NITROGEN 4 mg/dL (7-18); CALCIUM 7.9 MG/DL (8.5-10.1); CARBON DIOXIDE 24 MMOL/L (21-32); CHLORIDE 105 MMOL/L (98-107); CREATININE 0.8 MG/DL (0.55-1.30); POTASSIUM 4.1 MMOL/L (3.5-5.1); SODIUM 139 MMOL/L (136-145)
--- NOTE | 2018-04-17 07:39 | NUR ---
HAND-OFF: Report given to KRZYSZTOF Ulloa. Patient is stable and in bed. Outputs for PM Ileo: 375-80= 295cc UO: 400cc.
--- NOTE | 2018-04-17 07:45 | NUR ---
NURSE NOTES: Report received from outgoing RN, rounds made. Patient resting in bed, semi-fowlers position, calm on RA. No distress noted. Denies SOB/NV/pain. IVF infusing to left PICC as ordered, site asymptomatic, dressing CDI. Right ileostomy dressing CDI, draining gravity, light brown output. Left gastrostomy clamped at this time. Air mattress in place. Voiding in bathroom. Bed in lowest position, call light in reach, will continue to monitor.
[2018-04-17 08:00] VITALS: BP 102/65
[2018-04-17] MEDS: Fluconazole 100mg tab ORAL SCH (08:47)
[2018-04-17] MEDS: ESTRADIOL 2 MG ORAL SCH (08:48)
--- NOTE | 2018-04-17 10:23 | General Progress Note ---
Progress Note Progress Note AVSS Feeling well. Tolerated gastrostomy plugged continuously and liquid diet Abdomen soft, healing nicely Urine 2200 BCIR ileo 745 CBC and BMP - wnl Imp. Improved Plan: BCIR low residue diet Maintain continuous drainage of Sheppard continent ileostomy pouch Gastrostomy plugged Tyrone Conte MD Apr 17, 2018 10:23
[2018-04-17 12:00] VITALS: BP 125/75
--- NOTE | 2018-04-17 14:48 | NUR ---
CASE MANAGEMENT:REVIEW 04/16/18 SI: POD #7 S/P REVISION OF FINE CONTINENT ILEOSTOMY 97.9 83 18 102/65 100% ON RA H/H-9.6/29.6 CA-7.9 IS:DIFLUCAN PO QD IVF@75/HR IV TORADOL Q6HRS PRN IV VENOFER : MED/SURG STATUS 3 EAST PLAN: BCIR LOW RESIDUE DIET GASTROSTOMY PLUGGED MAINTAIN CONTINUOUS DRAINAGE OF FINE CONTINENT ILEOSTOMY STOOL FOR C-DIFF
--- NOTE | 2018-04-17 14:53 | NUR ---
CASE MANAGEMENT:REVIEW 04/17/18 SI: POD #7 S/P REVISION OF FINE CONTINENT ILEOSTOMY 97.9 83 18 102/65 100% ON RA H/H-9.6/29.6 CA-7.9 IS:DIFLUCAN PO QD IVF@75/HR IV TORADOL Q6HRS PRN IV VENOFER : MED/SURG STATUS 3 EAST PLAN: BCIR LOW RESIDUE DIET GASTROSTOMY PLUGGED MAINTAIN CONTINUOUS DRAINAGE OF FINE CONTINENT ILEOSTOMY STOOL FOR C-DIFF
--- NOTE | 2018-04-17 14:59 | NUR ---
INSURANCE FAXED REVIEW AND CLINICALS TO [facility] T: [phone] YASMIN F: [phone]
[2018-04-17 16:00] VITALS: BP 101/63
--- NOTE | 2018-04-17 16:00 | NUR ---
NURSE NOTES: Gastrostomy discontinued at [address] Conte. Abdominal dressing changed by Dr. Conte. Patient instructed to keep NPO and lay flat until 1550. IVF discontinued as ordered. Denies pain/NV. Will continue to monitor.
[2018-04-17 20:00] VITALS: BP 103/64
--- NOTE | 2018-04-17 20:00 | NUR ---
HAND-OFF: Report given to Arsema RN. Outputs: Ileostomy= 1095 ml Void= 850 ml
[2018-04-17] MEDS: Dyna-Hex 2% Top Sol 2oz TOPIC SCH (22:25)
--- NOTE | 2018-04-17 22:47 | NUR ---
NURSE NOTES: Received report from Laila BLANKENSHIP. Pt A&O x4, laying supine in bed. No signs of pain or distress. Pt on RA, IS at bedside. PICC site dry & intact. Ileostomy flushed per MD order, draining light green. Call light in reach, bed in lowest position, side rails up x2. Will continue to monitor.
[2018-04-18] VITALS: BP 95/61
[2018-04-18 04:00] VITALS: BP 100/60
[2018-04-18 06:22] LABS: BASOPHILS % (AUTO) 1.1 % (0.0-2.0); EOSINOPHILS % (AUTO) 5.1 % (0.0-3.0); HEMOGLOBIN 10.9 G/DL (12.0-16.0); LYMPHOCYTES % (AUTO) 20.8 % (20.0-45.0); MEAN CORPUSCULAR VOLUME 87 FL (80-99); MONOCYTES % (AUTO) 6.2 % (1.0-10.0); NEUTROPHILS % (AUTO) 66.8 % (45.0-75.0); PLATELET COUNT 282 K/UL (150-450); WHITE BLOOD COUNT 9.7 K/UL (4.8-10.8)
[2018-04-18 06:49] LABS: ALANINE AMINOTRANSFERASE 27 U/L (12-78); ALBUMIN 2.9 G/DL (3.4-5.0); ALBUMIN/GLOBULIN RATIO 0.7 (1.0-2.7); ALKALINE PHOSPHATASE 112 U/L (46-116); ANION GAP 10 mmol/L (5-15); ASPARTATE AMINO TRANSFERASE 28 U/L (15-37); BILIRUBIN,TOTAL 0.3 MG/DL (0.2-1.0); BLOOD UREA NITROGEN 14 mg/dL (7-18); CALCIUM 8.7 MG/DL (8.5-10.1); CARBON DIOXIDE 26 MMOL/L (21-32); CHLORIDE 103 MMOL/L (98-107); CREATININE 0.8 MG/DL (0.55-1.30); POTASSIUM 4.1 MMOL/L (3.5-5.1); SODIUM 139 MMOL/L (136-145)
--- NOTE | 2018-04-18 07:16 | NUR ---
HAND-OFF: Report given to Laila BLANKENSHIP. Pt is stable.
[2018-04-18 08:00] VITALS: BP 123/69
--- NOTE | 2018-04-18 08:00 | NUR ---
NURSE NOTES: Report received, rounds made. Patient just returned to room from ambulating in halls. Patient sitting upright at bedside, calm on RA. No complains of pain/NV/SOB. Left PICC intact, site asymptomatic, double lumens clamped. Abdominal dressing intact. Right lower abdomen ileostomy in place, draining to gravity. Bed in lowest position, call light in reach, mother in law present. Will continue to monitor.
--- NOTE | 2018-04-18 08:51 | General Progress Note ---
Progress Note Progress Note AVSS Eating BCIR diet and feeling well Abdomen soft. Jorge removed steristrips applied - nicely healed. Gastrostomy site healing nicely BCIR ileo catheter removed - reinserts readily Urine 1250 BCIR ileo 1215 WBC 9700 Hgb 10.9 BMP ok Imp. Doing well Plan: RN supervised BCIR self-intubations Discharge later today: full supplies/instructions/limitations provided/ discussed f/u 1 week Tyrone Conte MD Apr 18, 2018 08:51
[2018-04-18] MEDS: ESTRADIOL 2 MG ORAL SCH (09:21)
[2018-04-18] MEDS: Fluconazole 100mg tab ORAL SCH (09:21)
--- NOTE | 2018-04-18 10:30 | NUR ---
NURSE NOTES: Patient abdominal lauren removed by Dr. Conte, steri strips applied. Ileostomy discontinued at 0845 and dressing changed (ileostomy and gastrostomy site) by Dr. Conte. Left PICC line discontinued by RN, pressure dressing applied to left upper arm site, no active bleeding noted, no redness or swelling. Will continue to monitor.
[2018-04-18 12:00] VITALS: BP 135/82
[2018-04-18] MEDS ORDERED: HYDROCODON-ACE1 EA15 ORAL (12:37)
--- NOTE | 2018-04-18 13:45 | NUR ---
NURSE NOTES: Patient intubated at 1100 and 1300 as ordered, without difficulty, see nursing flowsheet for totals. New dressing applied to right lower abdomen by patient. Supplies provided as ordered. Patient instructed to keep a log with ileostomy intubation outputs with date/time. Discharge instructions reviewed with patient and mother in law, verbalized understanding. All belongings, supplies, home medications x2 (Hydrocodone/Acetaminophen and Estrace, picked up from pharmacy), discharge instructions given to patient. Sent down via WC in stable condition. Patient discharged home (to fly out to [place] today at 5 pm, took Uber ride to [facility] airport) at 1340.
--- NOTE | 2018-04-22 17:58 | Discharge Summary ---
Discharge Summary Hospital Course Date of Admission Apr 09, 2018 at 09:11 Date of Discharge Apr 18, 2018 at 13:40 Admitting Diagnosis Malfunctioning Sheppard Continent Ileostomy Reason for Hospitalization: elective surgery HPI Winifred London is a 48 year old female who was admitted on Mar at 09:11 for Malfunctioning Sheppard Continent Ileostomy Procedures s/p 04/10/[address] Dg Sheppard continent ileostomy, pouch endoscopy. s/p 04/10/[address] Conte Laparotomy with revision of Sheppard continent ileostomy valve and catheter gastrostomy. Hospital Course -Patient admitted for malfunctioning Sheppard continent ileostomy -Patient initially undergone continent ileostomy pouch endoscopy on , which found a partially slipped nipple valve - 28 [place] Block catheter was readily inserted into the pouch and continued to gravity drainage - patient tolerated endoscopy well -patient required revision of Sheppard continent ileostomy -patient subsequently later underdone laparotomy with revision of Sheppard continent ileostomy valve and catheter gastrostomy -patient was n.p.o. -pain management was addressed with CONVEYOR WORKER with continuous basal infusion -strict intake and output was closely monitored ( gastrostomy, Block catheter, ileostomy, and BCIR) -Toradol was added as needed for severe pain -Block catheter was continued due to severe adhesions from Sheppard pouch to bladder - incentive spirometry encouraged -electrolytes were closely monitored and corrected as needed , namely magnesium, phosphorus and KCl -laboratory work revealed severe iron deficiency, and patient was started on IV Venofer nightly -after 48 hours postoperatively continuous basal infusion of morphine sulfate was stopped -patient was encouraged to ambulate -abdomen remained distended with clear lung and clear incision -electrolytes were further replaced : potassium and phosphorus -pain was addressed -on 04/14 initiated gastrostomy 3:3 protocol -CONVEYOR WORKER was discontinued -Venofer was continue -on 04/15 started on clear liquid diet as tolerated with gastrostomy 5: 1 protocol -Block catheter was discontinued - empiric antibiotics stopped -patient was slowly improving: tolerated clear liquids and gastrostomy 5: 1 protocol -gastrostomy plug continuously ; continued drainage of Sheppard continent ileostomy was maintained -urine culture was negative -stool for C. difficile negative -patient started on 04/17 on BCIR low residue diet -drainage of Sheppard continent ileostomy was maintained -patient was slowly improving ; abdomen was healing nicely -gastrostomy tube was plugged -on lauren removed, steri-strips applied - gastrostomy site healing nicely - BCIR ileo catheter removed - reinserted readily -patient started on RN supervised BCIR self-intubation -patient was able to do self intubation without difficulties - full supplies/ instructions/ limitations/ provided and discussed -patient to follow-up in 1 week in the office and call office as needed FINAL DIAGNOSES 1. 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 History of colonic inertia and pelvic floor dysfunction. 3. Status post multiple abdominal operations including total colectomy and Sheppard continent ileostomy. 3.1. Total abdominal hysterectomy and bilateral salpingo-oophorectomy in 1997. 3.2. Subtotal colectomy with ileosigmoidostomy in 2013. 3.3. Resection of the ileosigmoidostomy due to volvulus and anastomosis leak with conversion to ileorectostomy with temporary loop ileostomy in October 2015. 3.4. Closure of loop ileostomy in January 2016. 3.5. Excision of right lower quadrant abscess tract of abdominal wall in June 2016. 3.6. Takedown of ileorectostomy with creation of Sheppard continent ileostomy in 12/10/2017. 4. s/p Sheppard pouch endoscopy 5. s/p laparotomy with revision of Sheppard continent ileostomy valve and catheter gastrostomy 6. Ileus - resolved 7. Atelectasis-resolved Discharge Medications Continued Medications: Diazepam* (Diazepam*) 5 Mg Tablet 5 MG ORAL QHS PRN for Restlessness, #30 TAB 0 Refills (This prescription has been renewed) Estradiol* (Estrace*) 1 Mg Tablet 1 MG ORAL DAILY, #10 TAB 0 Refills (This prescription has been renewed) Hydrocodone/Acetaminophen 5-325* (Hydrocodone/Acetaminophen 5-325*) 1 Each Tablet 1 TAB ORAL Q4H PRN for For Pain, #20 TAB 0 Refills (This prescription has been renewed) Discharge Condition Upon Discharge: stable Discharge Disposition Patient was discharged to Home () Discharge Instructions Discharge Instructions Special Instructions I have been assigned to complete a D/C Summary on this account. I was not involved in the patient management Louise Hays NP Apr 22, 2018 17:58
== END 2018-04-18 13:40 | disposition home or self-care (01) | DRG 348 ==
LOC: 3E 09:11
PROC: 0D9670Z Drainage of Stomach with Drainage Device, Via Natural or Artificial Opening (ICD-10-PCS; principal; 2018-04-10 08:07)
PROC: 0WQFXZ2 Repair Abdominal Wall, Stoma, External Approach (ICD-10-PCS; principal; 2018-04-10 08:07)
PROC: 0DJD8ZZ Inspection of Lower Intestinal Tract, Via Natural or Artificial Opening Endoscopic (ICD-10-PCS; principal; 2018-04-10 08:07)
DX: K94.13 Enterostomy malfunction (principal); K56.7 Ileus, unspecified; J98.11 Atelectasis; Y83.3 Surgical operation with formation of external stoma as the cause of abnormal reaction of the patient, or of later complication, without mention of misadventure at the time of the procedure; K59.8 Other specified functional intestinal disorders; N94.89 Other specified conditions associated with female genital organs and menstrual cycle; M32.9 Systemic lupus erythematosus, unspecified; M79.7 Fibromyalgia; Z90.710 Acquired absence of both cervix and uterus; Z90.722 Acquired absence of ovaries, bilateral; Z90.49 Acquired absence of other specified parts of digestive tract
CPT/HCPCS: 36415; 36569; 71045; 76937; 80048; 80053; 81001; 82607; 82746; 83540; 83550; 83735; 84100; 85025; 85610; 85730; 86850; 86900; 86901; 87086; 87324; 93005; 94003; 94150; J2250; J2405; J2710